=== PATIENT | male | born 1960 | race Caucasian/White ===

== ENCOUNTER → 2022-01-16 18:03 | Outpatient (CLI) | payer SELFPAY | PROVIDERS: Referring Provider Internal Medicine; Visit Provider Internal Medicine | DX: Z23 Encounter for immunization (principal) | CPT/HCPCS: 90471; 90686 ==

== ENCOUNTER → 2023-01-02 07:11 | Outpatient (CLI) | payer OTHER, SELFPAY ==
[2023-01-02 08:20] LABS: Add Manual Diff / Slide Review NO; Basophils Absolute Auto 0 /uL (0-100); Basophils Percent Auto 0.6 % (0-2); Eosinophils Absolute Auto 100 /uL (0-450); Eosinophils Percent Auto 1.8 % (2-4); Hematocrit 46.7 % (41-53); Hemoglobin 15.9 g/dL (13.5-17.5); Lymphocytes Absolute Auto 1100 /uL (1100-4500); Lymphocytes Percent Auto 14.8 % (25-40); Mean Corpuscular HGB Conc 34.1 % (30-36); Mean Corpuscular Hemoglobin 33.1 PG (26-34); Mean Corpuscular Volume 97.2 fL (80-100); Monocytes Absolute Auto 600 /uL (0-900); Neutrophils Absolute Auto 5700 /uL (1500-7000); Neutrophils Percent Auto 74.8 % (50-75); Platelet Count 187 X10^3/uL (150-400); White Blood Cell Count 7.7 X10^3/uL (4.5-11.0)
[2023-01-02 08:33] LABS: Alanine Aminotransferase 28 IU/L (<50); Albumin 4.4 g/dL (3.5-5.0); Albumin Globulin Ratio 1.5 (1.0-2.8); Alkaline Phosphatase 68 U/L (38-126); Aspartate Aminotransferase 30 IU/L (17-59); BUN Creatinine Ratio 18.4 (6-22); Bilirubin Total 0.9 mg/dL (0.2-1.3); Blood Urea Nitrogen 19 mg/dL (9-20); Calcium 9.7 mg/dL (8.4-10.2); Carbon Dioxide 27 mmol/L (22-32); Chloride 105 mmol/L (98-107); Cholesterol 243 mg/dL (140-199); Estimated Glomerular Filt Rate > 60 mL/min (>60); Glucose 100 mg/dL (80-110); HDL Cholesterol 61 mg/dL (40-60); HEMOLYSIS 40 (0-50); LDL Cholesterol Calculated 157 mg/dL (<100); Potassium 4.5 mmol/L (3.4-5.1); Sodium 138 mmol/L (137-145); Total Protein 7.4 g/dL (6.3-8.2); Triglycerides 123 mg/dL (35-150)
[2023-01-02 09:00] LABS: Prostate Specific Antigen 1.09 ng/mL (0.10-4.00)
[2023-01-02 09:05] LABS: TSH w/ Reflex to FT4 0.61 uIU/mL (0.47-4.68)
[2023-01-08 08:43] LABS: Percent Free Testosterone 2.23 % (1.50-4.20); Testosterone Free 5.66 ng/dL (5.00-21.00); Testosterone Total 253.9 ng/dL (264.0-916.0)
== END ==
PROVIDERS: PCP Family Medicine; Referring Provider Family Medicine; Visit Provider Family Medicine
DX: Z00.00 Encounter for general adult medical examination without abnormal findings (principal); N40.0 Benign prostatic hyperplasia without lower urinary tract symptoms; N52.9 Male erectile dysfunction, unspecified
CPT/HCPCS: 36415; 80053; 80061; 84153; 84402; 84403; 84443; 85025

== ENCOUNTER → 2023-02-19 11:01 | Outpatient (CLI) | payer OTHER, SELFPAY | PROVIDERS: PCP Family Medicine; Referring Provider Family Medicine; Visit Provider Family Medicine | DX: Z23 Encounter for immunization (principal) | CPT/HCPCS: 90471; 90686 ==

== ENCOUNTER 2023-04-02 13:55 | Emergency (ER) | payer OTHER, SELFPAY ==
[2023-04-02 14:17] VITALS: BP 145/91; PULSE 80; RESP 22; TEMP 36.4; O2SAT 98; BMI 28.7
--- NOTE | 2023-04-02 14:38 | DI.RAD.S_ITS ---
PROCEDURE: XR CHEST 1V INDICATIONS: chest pain TECHNIQUE: One view of the chest was acquired. COMPARISON: None. FINDINGS: Surgical changes and devices: None. Lungs and pleura: Lungs are clear. No pleural effusions or pneumothorax. Mediastinum: Mediastinal contours appear normal. Heart size is normal. Bones and chest wall: No suspicious bony lesions. Overlying soft tissues appear unremarkable. IMPRESSION: No acute cardiopulmonary abnormality is seen. Dictated by: Anson Wheeler M.D. on 04/02/2023 at 15:05 Approved by: Anson Wheeler M.D. on 04/02/2023 at 15:05
[2023-04-02 14:49] LABS: Add Manual Diff / Slide Review NO; Basophils Absolute Auto 0 /uL (0-100); Basophils Percent Auto 0.4 % (0-2); Eosinophils Absolute Auto 100 /uL (0-450); Eosinophils Percent Auto 1.1 % (2-4); Hematocrit 50.6 % (41-53); Hemoglobin 17.3 g/dL (13.5-17.5); Lymphocytes Absolute Auto 900 /uL (1100-4500); Lymphocytes Percent Auto 10.9 % (25-40); Mean Corpuscular HGB Conc 34.1 % (30-36); Mean Corpuscular Hemoglobin 33.5 PG (26-34); Mean Corpuscular Volume 98.3 fL (80-100); Monocytes Absolute Auto 700 /uL (0-900); Monocytes Percent Auto 7.8 % (3-14); Neutrophils Absolute Auto 6900 /uL (1500-7000); Neutrophils Percent Auto 79.8 % (50-75); Platelet Count 182 X10^3/uL (150-400); Red Blood Cell Count 5.15 X10^6/uL (4.5-5.9); Red Cell Distribution Width 12.7 % (11.6-14.8); White Blood Cell Count 8.7 X10^3/uL (4.5-11.0)
[2023-04-02 15:05] LABS: INR 1.1 (0.9-1.3); Prothrombin Time 12.6 SECONDS (9.4-12.5)
[2023-04-02 15:06] LABS: Alanine Aminotransferase 18 IU/L (<50); Albumin 4.3 g/dL (3.5-5.0); Albumin Globulin Ratio 1.3 (1.0-2.8); Alkaline Phosphatase 59 U/L (38-126); Aspartate Aminotransferase 26 IU/L (17-59); BUN Creatinine Ratio 18.1 (6-22); Blood Urea Nitrogen 17 mg/dL (9-20); Calcium 9.9 mg/dL (8.4-10.2); Carbon Dioxide 23 mmol/L (22-32); Chloride 107 mmol/L (98-107); Creatine Kinase 100 U/L (55-170); Estimated Glomerular Filt Rate > 60 mL/min (>60); Globulin 3.4 g/dL (1.7-4.1); Glucose 120 mg/dL (80-110); HEMOLYSIS 28 (0-50); Lipase 93 U/L (23-300); Magnesium 2.1 mg/dL (1.6-2.3); Potassium 4.1 mmol/L (3.4-5.1); Sodium 137 mmol/L (137-145); Total Protein 7.7 g/dL (6.3-8.2)
[2023-04-02 15:11] LABS: PTT Partial Thromboplastin Tim 33 SECONDS (25.1-36.5)
[2023-04-02 15:16] LABS: NT-proBNP (BNP-Adult 18+) 132 pg/mL (<125); Troponin I < 0.012 ng/mL (0.01-0.034)
--- NOTE | 2023-04-02 17:00 | PC.NURSE ---
Patient called back to ED to request removal of IV and to go home. Patient understands how to get his lab information to follow up with PCP.
== END 2023-04-02 17:01 | disposition left against medical advice (07) ==
PROVIDERS: Emergency Provider Emergency Medicine; PCP Family Medicine
DX: R07.9 Chest pain, unspecified (principal); H93.13 Tinnitus, bilateral
CPT/HCPCS: 71045; 80053; 82550; 83690; 83735; 83880; 84484; 85025; 85610; 85730; 93005; 99281

== ENCOUNTER → 2023-07-17 16:38 | Outpatient (CLI) | payer OTHER, SELFPAY ==
--- NOTE | 2023-07-17 16:39 | DI.RAD.S_ITS ---
PROCEDURE: XR CERVICAL SPINE 2V OR 3V INDICATIONS: Progressive neck pain with left upper extremity radiculopath TECHNIQUE: 3 view(s) of the cervical spine were acquired. COMPARISON: None. FINDINGS: Bones: [id number] degenerative changes. Vertebral body heights are well maintained. No traumatic subluxation. Soft tissues: No pathologic prevertebral soft tissue swelling. IMPRESSION: [id number] degenerative changes. No acute radiographic abnormality. If there is high concern for further derangement, consider MRI evaluation. Dictated by: Teo Larson M.D. on 07/18/2023 at 12:01 Approved by: Teo Larson M.D. on 07/18/2023 at 12:02
== END ==
PROVIDERS: PCP Family Medicine; Referring Provider Family Medicine; Visit Provider Family Medicine
DX: M43.02 Spondylolysis, cervical region (principal); M47.812 Spondylosis without myelopathy or radiculopathy, cervical region
CPT/HCPCS: 72040

== ENCOUNTER 2023-09-07 19:35 | Emergency (ER) | payer OTHER, SELFPAY ==
[2023-09-07] VITALS (12 sets, daily range): BP systolic 115–172; BP diastolic 55–93; PULSE 69–85; RESP 15; TEMP 36.6; O2SAT 92–98; BMI 29.3
[2023-09-07] MEDS: ONDANSETRON 4 MG/2 ML INJ IV (20:02)
[2023-09-07] MEDS: KETOROLAC 30 MG/ML VIAL 15 MG IV (20:03)
[2023-09-07 20:04] LABS: Add Manual Diff / Slide Review NO; Basophils Absolute Auto 100 /uL (0-100); Basophils Percent Auto 0.5 % (0-2); Eosinophils Absolute Auto 200 /uL (0-450); Eosinophils Percent Auto 1.6 % (2-4); Hematocrit 47.4 % (41-53); Lymphocytes Absolute Auto 2000 /uL (1100-4500); Lymphocytes Percent Auto 17.5 % (25-40); Mean Corpuscular HGB Conc 33.9 % (30-36); Mean Corpuscular Hemoglobin 33.3 PG (26-34); Mean Corpuscular Volume 98.3 fL (80-100); Monocytes Absolute Auto 1300 /uL (0-900); Monocytes Percent Auto 11.4 % (3-14); Neutrophils Absolute Auto 7800 /uL (1500-7000); Platelet Count 201 X10^3/uL (150-400); Red Blood Cell Count 4.82 X10^6/uL (4.5-5.9); Red Cell Distribution Width 12.7 % (11.6-14.8); White Blood Cell Count 11.3 X10^3/uL (4.5-11.0)
[2023-09-07 20:08] LABS: Alanine Aminotransferase 34 IU/L (<50); Albumin 4.5 g/dL (3.5-5.0); Albumin Globulin Ratio 1.4 (1.0-2.8); Alkaline Phosphatase 82 U/L (38-126); Aspartate Aminotransferase 38 IU/L (17-59); BUN Creatinine Ratio 15.6 (6-22); Bilirubin Total 0.6 mg/dL (0.2-1.3); Blood Urea Nitrogen 21 mg/dL (9-20); Calcium 9.3 mg/dL (8.4-10.2); Carbon Dioxide 22 mmol/L (22-32); Chloride 110 mmol/L (98-107); Estimated Glomerular Filt Rate 59 mL/min (>60); Globulin 3.2 g/dL (1.7-4.1); Glucose 102 mg/dL (80-110); HEMOLYSIS 21 (0-50); Lipase 186 U/L (23-300); Sodium 140 mmol/L (137-145); Total Protein 7.7 g/dL (6.3-8.2)
--- NOTE | 2023-09-07 21:46 | DI.CT.S_ITS ---
PROCEDURE: CT ABDOMEN PELVIS WO CON INDICATIONS: abd pain TECHNIQUE: Axial sections were acquired from the lung bases to the pubic symphysis. Coronal and sagittal reformats were performed. For radiation dose reduction, the following was used: automated exposure control, adjustment of mA and/or kV according to patient size. COMPARISON: None. FINDINGS: Image quality: Diagnostic. Lower Chest: Clear lung bases. Tiny hiatal hernia. URINARY: Right Kidney: Two punctate, nonobstructing, lower pole right intrarenal calculi. No hydronephrosis. Right Ureter: No hydroureter, ureteral calculus, or periureteric inflammation. Left Kidney: Punctate, nonobstructing lower pole intrarenal calculi. Mild hydronephrosis. Moderate perinephric inflammation. Left Ureter: Mild hydroureter and moderate periureteric inflammation. 4 mm calcification in the left distal ureter. Bladder: Decompressed. No stones. ABDOMEN: Liver: No contour-deforming solid mass. Gallbladder: Very small, nonobstructing calculus in the gallbladder neck. No wall thickening. Biliary ducts: No biliary dilation. Pancreas: No ductal dilation. Spleen: Size is within normal limits. Adrenal Glands: No adrenal nodules. Stomach and Bowel: Ingested material throughout the stomach. Normal small bowel. Moderate diverticulosis in the sigmoid colon. The appendix is either very short or absent. Peritoneum: No abnormal intraperitoneal fluid. No free air. Ventral Wall: No hernia. Abdominal Nodes: No enlarged retroperitoneal or mesenteric lymph nodes. Vessels: Aorta and inferior vena cava are normal in size. PELVIS: Pelvic Organs: Mild prostatomegaly. Pelvic Nodes: Unremarkable. Miscellaneous: No inguinal hernias are seen. Bones: Unremarkable. IMPRESSION: 4 mm partially obstructing left distal ureteral calculus causing mild left hydroureteronephrosis. A few punctate bilateral lower pole nonobstructing intrarenal calculi. Cholelithiasis. Dictated by: Afshan Wolff M.D. on 09/07/2023 at 22:55 Approved by: Afshan Wolff M.D. on 09/07/2023 at 22:59
[2023-09-07] MEDS: HYDROMORPHONE 0.5 MG INJ IV ×2 (21:55→23:45)
[2023-09-07 21:57] LABS: Urine Volume 10mL (spun)
[2023-09-07 21:58] LABS: Bacteria Urine Few (2-10); Mucus Urine 1+ (Negative); RBC Urine 5-10/HPF (0-5/HPF); Squamous Epithelial Cell Urine 0-1 /HPF (0-5/HPF); WBC Urine 0-1/HPF (0-5/HPF)
--- NOTE | 2023-09-07 22:49 | ED.ABDPAIN ---
HPI - Abdominal Pain General Chief Complaint: Urogenital-Male Stated Complaint: kidney stone Time Seen by Provider: 09/07/23 21:46 Source: patient Mode of arrival: Ambulatory History of Present Illness HPI narrative: 62-year-old male with history of kidney stones, had diagnosis of left-sided kidney stone 1-1/2 months ago he thinks that was about 5 mm in diameter, has not seen Urology, but did feel better in follow up, had not been straining his urine for stone or sediment. About 1 week ago he felt like he had blood in his urine but no flank pain or abdominal pain, that seemed to resolve. Today proximally 5:00 p.m. he had acute onset atraumatic left flank pain, some nausea without emesis. No black or red or loose stools. He has had similar symptoms with diverticulitis, was concerned about diverticulitis, as he felt that he had passed his recent stone. No cough or fever or shortness of breath. Related Data Previous Rx's Medication Instructions Recorded tadalafil 5 mg tablet 5 mg PO DAILY PRN sexual activity 12/29/22 #90 tabs tamsulosin 0.4 mg capsule 0.4 mg PO BEDTIME #90 caps 12/29/22 needle (disp) 18 G 18 gauge x 1 #100 ea 01/11/2303/06 (BD Regular Bevel Jefferson) syringe with needle (Monoject #300 ea 01/11/23 Safety Syringes) testosterone cypionate 200 mg/mL 100 mg (0.5 mL) IM QWEEK #10 mL 01/11/23 intramuscular oil (Depo-Testosterone) trazodone 50 mg tablet 50 mg PO BEDTIME PRN insomnia #30 04/05/23 tabs gabapentin 300 mg capsule 300 mg PO .COMPLEX #90 caps 08/06/23 lidocaine 5 % topical patch 1 patch topical DAILY #30 ea 08/06/23 cefdinir 300 mg capsule 300 mg PO BID 10 days #20 caps 09/08/23 cefdinir 300 mg capsule 300 mg PO BID 10 days #20 caps 09/08/23 naproxen 500 mg tablet 500 mg PO BID 7 days #14 tabs 09/08/23 naproxen 500 mg tablet 500 mg PO BID 7 days #14 tabs 09/08/23 oxycodone-acetaminophen 5 mg-325 1 tab PO Q6H PRN pain #14 tabs 09/08/23 mg tablet oxycodone-acetaminophen 5 mg-325 1 tab PO Q6H PRN pain #20 tabs 09/08/23 mg tablet tamsulosin 0.4 mg capsule 0.8 mg (2 x 0.4 mg) PO DAILY 7 09/08/23 days #14 caps tamsulosin 0.4 mg capsule 0.8 mg (2 x 0.4 mg) PO DAILY 7 09/08/23 days #14 caps Allergies Allergy/AdvReac Type Severity Reaction Status Date / Time No Known Drug Allergies Allergy Verified 09/07/23 19:45 Review of Systems Review of Systems Narrative: see HPI Patient History Medical History (Updated 09/08/23 @ 00:36 by Tres Marques MD) Left arm pain Chronic neck pain Cervical radiculopathy Cervical spondylolysis Hypotestosteronism Hyperlipidemia Hearing loss Sleep apnea (~2009) Shoulder pain (~2004) Chronic back pain Carpal tunnel syndrome (~2004) Erectile dysfunction Preventative health care BPH (benign prostatic hyperplasia) Surgical History Anesthesia History of surgery on arm History of hernia repair History of back surgery History of hand surgery Social History Smoking Status: Former smoker Smoking Status: Former smoker alcohol intake frequency: holidays/special occasions only Substance Use Type: marijuana Exam Narrative Exam Narrative: GENERAL: Well-developed patient, in mild distress. HEAD: Atraumatic. Normocephalic. EYES: Pupils equal round and reactive. Extraocular motions intact. No scleral icterus. No injection or drainage. ENT: Nose without bleeding, purulent drainage. Throat without erythema, tonsillar hypertrophy or exudate. Airway patent. NECK: Trachea midline. Non tender CARDIOVASCULAR: Regular rate and rhythm without murmurs, gallops, or rubs. RESPIRATORY: Clear to auscultation. Breath sounds equal bilaterally. No wheezes, rales, or rhonchi. GASTROINTESTINAL: Abdomen soft, mild tenderness LLQ abdomen, no guarding or rebound, nondistended. EXTREMITIES: No edema or joint tenderness. BACK: Nontender without deformity or crepitance or vesicles/rash. No flank tenderness. NEURO: AOx3. SKIN: No rash or erythema of visible areas Initial Vital Signs Initial Vital Signs: Vital Signs Temperature 97.8 F 09/07/23 19:37 Pulse Rate 80 07/05/24 19:37 Respiratory Rate 15 09/07/23 19:37 Blood Pressure 172/93 H 09/07/23 19:37 Pulse Oximetry 98 09/07/23 19:37 Oxygen Delivery Method Room Air 09/07/23 19:37 Course Orders Ordered: Discontinued Medications Hydromorphone HCl (Hydromorphone 0.5 Mg Inj) 0.5 mg IV NOW ONE Stop: 09/07/23 21:50 Last Admin: 09/07/23 21:55 Dose: 0.5 mg Documented By: CARIDAD Hydromorphone HCl (Hydromorphone 0.5 Mg Inj) 0.5 mg IV NOW ONE Stop: 09/07/23 23:19 Last Admin: 09/07/23 23:45 Dose: 0.5 mg Documented By: GLENROY Ceftriaxone Sodium 1,000 mg/ (Sodium Chloride) 100 mls @ 200 mls/hr IV NOW ONE Stop: 09/08/23 00:36 Last Infusion: 09/08/23 01:19 Dose: Infused Documented By: Admin: 09/08/23 00:44 Dose: 200 mls/hr Documented By: ABE Ketorolac Tromethamine (Ketorolac 30 Mg/Ml Vial) 15 mg IV NOW ONE Stop: 09/07/23 19:57 Last Admin: 09/07/23 20:03 Dose: 15 mg Documented By: CARIDAD Ondansetron HCl (Ondansetron 4 Mg/2 Ml Inj) 4 mg IV NOW PRN PRN Reason: Nausea And Vomiting Last Admin: 09/07/23 20:02 Dose: 4 mg Documented By: CARIADD Ondansetron HCl (Ondansetron 4 Mg Odt) 4 mg PO NOW PRN PRN Reason: Nausea And Vomiting Ondansetron HCl (Ondansetron 4 Mg/2 Ml Inj) 4 mg IV NOW ONE Stop: 09/07/23 22:02 Ondansetron HCl (Ondansetron 4 Mg Odt Prepack) 1 bottle MISC DIRECTED ONE Stop: 09/08/23 01:41 Last Admin: 09/08/23 01:44 Dose: 1 bottle Documented By: LANE Oxycodone/Acetaminophen (Oxycodone/Apap 5/325 Prepack) 1 bottle MISC DIRECTED ONE Stop: 09/08/23 01:41 Last Admin: 09/08/23 01:44 Dose: 1 bottle Documented By: HNG Vital Signs Vital signs: Vital Signs - 8 hr 09/07/23 19:37 09/07/23 19:39 09/07/23 19:39 Temperature 97.8 F Pulse Rate 80 80 Respiratory Rate 15 Blood Pressure 172/93 H 172/93 H Pulse Oximetry 98 97 Oxygen Delivery Method Room Air 09/07/23 20:06 09/07/23 20:30 09/07/23 20:31 Temperature Pulse Rate 69 74 Respiratory Rate Blood Pressure 118/55 L Pulse Oximetry 98 92 Oxygen Delivery Method 09/07/23 20:31 09/07/23 21:00 09/07/23 21:00 Temperature Pulse Rate 74 81 Respiratory Rate Blood Pressure 115/58 L Pulse Oximetry 92 Oxygen Delivery Method 09/07/23 21:29 09/07/23 21:30 09/07/23 21:30 Temperature Pulse Rate 82 81 Respiratory Rate Blood Pressure 122/63 Pulse Oximetry 97 96 Oxygen Delivery Method 09/07/23 22:00 09/07/23 22:30 09/07/23 23:00 Temperature Pulse Rate 78 76 75 Respiratory Rate Blood Pressure Pulse Oximetry 94 94 93 Oxygen Delivery Method 09/07/23 23:30 09/08/23 00:00 09/08/23 00:30 Temperature Pulse Rate 85 73 74 Respiratory Rate Blood Pressure Pulse Oximetry 95 94 95 Oxygen Delivery Method 09/08/23 00:47 09/08/23 00:47 09/08/23 01:00 Temperature Pulse Rate 82 Respiratory Rate Blood Pressure 118/71 119/72 Pulse Oximetry 95 Oxygen Delivery Method 09/08/23 01:00 Temperature Pulse Rate 73 Respiratory Rate Blood Pressure Pulse Oximetry 95 Oxygen Delivery Method MDM - Abdominal Pain Differential Diagnosis Differential diagnosis: Likely abdominal pain, acute appendicitis, calculus of kidney, small bowel obstruction and other Lab Data Attestation: I reviewed the patient's lab results. 09/07/23 19:45 09/07/23 19:45 Labs: Lab Results 09/07/23 09/07/23 Range/Units 19:45 21:30 WBC 11.3 H (4.5-11.0) X10^3/uL RBC 4.82 (4.5-5.9) X10^6/uL Hgb 16.0 (13.5-17.5) g/dL Hct 47.4 (41-53) % MCV 98.3 (80-100) fL MCH 33.3 (26-34) PG MCHC 33.9 (30-36) % RDW 12.7 (11.6-14.8) % Plt Count 201 (150-400) X10^3/uL Neut % (Auto) 69.0 (50-75) % Lymph % (Auto) 17.5 L (25-40) % [place] % (Auto) 11.4 (3-14) % Eos % (Auto) 1.6 L (2-4) % Baso % (Auto) 0.5 (0-2) % Neut # (Auto) 7800 H (9684-0094) /uL Lymph # (Auto) 2000 (5517-6289) /uL [place] # (Auto) 1300 H (0-900) /uL Eos # (Auto) 200 (0-450) /uL Baso # (Auto) 100 (0-100) /uL Sodium 140 (137-145) mmol/L Potassium 4.0 (3.4-5.1) mmol/L Chloride 110 H (98-107) mmol/L Carbon Dioxide 22 (22-32) mmol/L BUN 21 H (9-20) mg/dL Creatinine 1.35 H (0.66-1.25) mg/dL Estimated GFR 59 L (>60) mL/min BUN/Creatinine Ratio 15.6 (6-22) Glucose 102 (80-110) mg/dL Calcium 9.3 (8.4-10.2) mg/dL Total Bilirubin 0.6 (0.2-1.3) mg/dL AST 38 (17-59) IU/L ALT 34 (<50) IU/L Alkaline Phosphatase 82 (38-126) U/L Total Protein 7.7 (6.3-8.2) g/dL Albumin 4.5 (3.5-5.0) g/dL Globulin 3.2 (1.7-4.1) g/dL Albumin/Globulin Ratio 1.4 (1.0-2.8) Lipase 186 (23-300) U/L Urine RBC 5-10/hpf H (0-5/HPF) Urine WBC 0-1/hpf (0-5/HPF) Ur Squamous Epith Cells 0-1 /hpf (0-5/HPF) Urine Bacteria Few (2-10) H (None) Urine Mucus 1+ H (Negative) Vol Urine Centrifuged 10ml (spun) Point of care testing: Urine Dip Bedside Urine Glucose Negative Bedside Urine Bilirubin - Negative Bedside Urine Ketone ++ 40 Urine Specific [place] 1.015 Bedside Urine Occult Blood +++ Bedside Urine pH 7.0 Bedside Urine Protein +/- 15 Bedside Urine Urobilinogen - Negative Bedside Urine Nitrite - Negative Bedside Urine Leukocytes - Negative Esterase Imaging Data CT scan - abdomen/pelvis: Radiologist's Impression: [address] [address] [address] Scan Report Signed Patient: Jorge Ochoa MR#: [id number] : 1960 Acct:[id number] Age/Sex: 62 / M Date of Service: 09/07/23 Loc: ED Accession Number: [id number] Procedure: CT abdomen pelvis wo con Ordering Provider: Tres Marques MD PROCEDURE: CT ABDOMEN PELVIS WO CON INDICATIONS: abd pain TECHNIQUE: Axial sections were acquired from the lung bases to the pubic symphysis. Coronal and sagittal reformats were performed. For radiation dose reduction, the following was used: automated exposure control, adjustment of mA and/or kV according to patient size. COMPARISON: None. FINDINGS: Image quality: Diagnostic. Lower Chest: Clear lung bases. Tiny hiatal hernia. URINARY: Right Kidney: Two punctate, nonobstructing, lower pole right intrarenal calculi. No hydronephrosis. Right Ureter: No hydroureter, ureteral calculus, or periureteric inflammation. Left Kidney: Punctate, nonobstructing lower pole intrarenal calculi. Mild hydronephrosis. Moderate perinephric inflammation. Left Ureter: Mild hydroureter and moderate periureteric inflammation. 4 mm calcification in the left distal ureter. Bladder: Decompressed. No stones. ABDOMEN: Liver: No contour-deforming solid mass. Gallbladder: Very small, nonobstructing calculus in the gallbladder neck. No wall thickening. Biliary ducts: No biliary dilation. Pancreas: No ductal dilation. Spleen: Size is within normal limits. Adrenal Glands: No adrenal nodules. Stomach and Bowel: Ingested material throughout the stomach. Normal small bowel. Moderate diverticulosis in the sigmoid colon. The appendix is either very short or absent. Peritoneum: No abnormal intraperitoneal fluid. No free air. Ventral Wall: No hernia. Abdominal Nodes: No enlarged retroperitoneal or mesenteric lymph nodes. Vessels: Aorta and inferior vena cava are normal in size. PELVIS: Pelvic Organs: Mild prostatomegaly. Pelvic Nodes: Unremarkable. Miscellaneous: No inguinal hernias are seen. Bones: Unremarkable. IMPRESSION: 4 mm partially obstructing left distal ureteral calculus causing mild left hydroureteronephrosis. A few punctate bilateral lower pole nonobstructing intrarenal calculi. Cholelithiasis. Dictated by: Afshan Wolff M.D. on 09/07/2023 at 22:55 Approved by: Afshan Wolff M.D. on 09/07/2023 at 22:59 MDM Narrative Medical decision making narrative: 62-year-old male with left-sided flank pain, history of kidney stones, somewhat similar, no tenderness on exam, discussed options, history of diverticulitis, mild left lower quadrant tenderness on exam, prefers imaging. CT abdomen and pelvis imaging ordered. IV Dilaudid, some decreased pain. CT scan shows left ureteral stone 4 mm with ipsilateral hydronephrosis. Incidental cholelithiasis, patient informed. UA pending UA possible infection, no fever, urine culture requested, IV ceftriaxone, sent Rx for Cefdinir. Also sent Rx for Percocet, Rx for tamsulosin. Urine strainer for discharge. Advised close follow-up early this week with urology, check symptoms and culture results, return if fever as might need urology to place ureeral stent, no fever at this time. Contact info given for local urologist Dr Le for follow-up. Return precautions discussed. Home improved, stable Critical Care Time Critical Care Time Critical Care Time: Yes Total Critical Care Time: 31 Attestation: The high probability of a clinically significant, sudden or life threatening deterioration of the [genitourinary, gastrointestinal, abdominopelvic] system(s) required my full and direct attention, intervention and personal management. The aggregate critical care time was [31] minutes. This time is in addition to time spent performing reported procedures but includes the following: [x] Data Review and interpretation [x] Patient assessment and monitoring of vital signs [x] Documentation [x] Medication orders and management Discharge Plan Departure Patient Disposition: Home Clinical Impression: Acute left flank pain, Left ureteral stone, Urinary tract infection Instructions: DI for Kidney Stones, DI for Urinary Tract Infection (UTI) Activity Restrictions/Additional Instructions: Left flank pain, CT scanning showed 4 mm left-sided ureteral stone, urinalysis shows possible infection, urine culture requested, IV antibiotics started. No fever. If there were definite infection with fever then sometimes emergent ureteral surgical stenting is needed. No fever. Trial of antibiotics for now in case of infection, although it is not clear if there is really truly an infection. Continue antibiotic orally until recheck on Sunday with your regular provider and/or Urology. Contact information given for Dr. Le of Urology. Consider taking tamsulosin to help expulsion of the stone, prescription sent to your pharmacy. Percocet pain medication sent to your pharmacy. Consider taking anti-inflammatory pain medications as well, prescription sent to your pharmacy. Prescriptions: New cefdinir 300 mg capsule 300 mg PO BID 10 Days Qty: 20 0RF tamsulosin 0.4 mg capsule 0.8 mg PO DAILY 7 Days Qty: 14 0RF naproxen 500 mg tablet 500 mg PO BID 7 Days Qty: 14 0RF oxycodone-acetaminophen 5-325 mg tablet 1 tab PO Q6H PRN (Reason: pain) Qty: 14 0RF oxycodone-acetaminophen 5-325 mg tablet 1 tab PO Q6H PRN (Reason: pain) Qty: 20 0RF tamsulosin 0.4 mg capsule 0.8 mg PO DAILY 7 Days Qty: 14 0RF cefdinir 300 mg capsule 300 mg PO BID 10 Days Qty: 20 0RF naproxen 500 mg tablet 500 mg PO BID 7 Days Qty: 14 0RF No Action tadalafil 5 mg tablet 5 mg PO DAILY PRN (Reason: sexual activity) Qty: 90 3RF Rx Instructions: administer approximately 30min before sexual activity; do not use more than 1 dose per 24hrs tamsulosin 0.4 mg capsule 0.4 mg PO BEDTIME Qty: 90 3RF Rx Instructions: take at bedtime trazodone 50 mg tablet 50 mg PO BEDTIME PRN (Reason: insomnia) Qty: 30 1RF (DME) BD Regular Bevel Jefferson 18 gauge x 1 1/2 needle See Rx Instructions .Route Qty: 100 0RF Rx Instructions: Use to inject Testosterone once a week (DME) Monoject Safety Syringes Syringe See Rx Instructions .Route Qty: 300 0RF Rx Instructions: Use to inject Testosterone weekly. 18 G x 1 1/2 testosterone cypionate [Depo-Testosterone] 200 mg/mL oil 100 mg IM QWEEK Qty: 10 1RF lidocaine 5 % adhesive patch,medicated 1 patch topical DAILY Qty: 30 1RF Rx Instructions: leave on most painful area for 12 hrs gabapentin 300 mg capsule 300 mg PO .COMPLEX Qty: 90 2RF Rx Instructions: 1 PO QHS x3 days if tolerated, 1 PO BID x3 days if tolerated, 1 PO TID Referrals: Marlo Simmons DO [Primary Care Provider] - Emeterio Le MD [Physician] - Stand Alone Forms: Patient Portal/API
[2023-09-08] VITALS: PULSE 73; O2SAT 94
[2023-09-08 00:30] VITALS: PULSE 74; O2SAT 95
[2023-09-08] MEDS: cefTRIAXone 1,000 MG in SODIUM CHLORIDE 0.9% 100 ML 200 MG IV (00:44)
[2023-09-08 00:47] VITALS: BP 118/71; PULSE 82; O2SAT 95
[2023-09-08 01:00] VITALS: BP 119/72; PULSE 73; O2SAT 95
[2023-09-08] MEDS: ONDANSETRON 4 MG ODT PREPACK 1 BOTTLE MISC (01:44)
[2023-09-08] MEDS: OXYCODONE/APAP 5/325 PREPACK 1 BOTTLE MISC (01:44)
== END 2023-09-08 01:46 | disposition home or self-care (01) ==
PROVIDERS: Emergency Provider Emergency Medicine; PCP Family Medicine
DX: N20.1 Calculus of ureter (principal); N39.0 Urinary tract infection, site not specified; R10.9 Unspecified abdominal pain; R11.2 Nausea with vomiting, unspecified; Z87.442 Personal history of urinary calculi
CPT/HCPCS: 36415; 74176; 80053; 81003; 81015; 83690; 85025; 87086; 96365; 96375; 96376; 99284; J0696; J1170; J1885; J2405

== ENCOUNTER 2023-09-13 07:34 | Observation (INO) | payer OTHER, SELFPAY ==
[2023-09-13] VITALS (11 sets, daily range): BP systolic 103–160; BP diastolic 63–84; PULSE 60–83; RESP 17–19; TEMP 36.6–36.8; O2SAT 94–98; BMI 29.1; BMI 29.3
--- NOTE | 2023-09-13 07:43 | ED_ITS ---
HPI - Abdominal Pain General Chief Complaint: Abdominal Pain Stated Complaint: per pt diverticulitis & kidney stone Time Seen by Provider: 09/13/23 07:43 History of Present Illness HPI narrative: Patient is 62-year-old male history of BPH known kidney stone was seen evaluated here on September 06 found to have a 4 mm partially obstructing left distal calculous, presenting today with now right-sided pain. He reports that he has been drinking water and not really eating trying to have an ensure but continues to have pain. He feels like he is peeing but only a little bit a time he urinated blood this morning. He was sweating all night last night. But not sure that he had fever. Right-sided pain is new. He has been taking Percocet, which is not helping for pain any longer. Related Data Home Medications Medication Instructions Recorded Confirmed ibuprofen 600 mg tablet 600 mg PO 3XD 09/13/23 09/13/23 Previous Rx's Medication Instructions Recorded tadalafil 5 mg tablet 5 mg PO DAILY PRN sexual activity 12/29/22 #90 tabs tamsulosin 0.4 mg capsule 0.4 mg PO BEDTIME #90 caps 12/29/22 gabapentin 300 mg capsule 300 mg PO .COMPLEX #90 caps 08/06/23 lidocaine 5 % topical patch 1 patch topical DAILY #30 ea 08/06/23 cefdinir 300 mg capsule 300 mg PO BID 10 days #20 caps 09/08/23 naproxen 500 mg tablet 500 mg PO BID 7 days #14 tabs 09/08/23 oxycodone-acetaminophen 5 mg-325 1 tab PO Q6H PRN pain #14 tabs 09/08/23 mg tablet Allergies Allergy/AdvReac Type Severity Reaction Status Date / Time No Known Drug Allergies Allergy Verified 09/07/23 19:45 Patient History Medical History Left arm pain Chronic neck pain Cervical radiculopathy Cervical spondylolysis Hypotestosteronism Hyperlipidemia Hearing loss Sleep apnea (~2009) Shoulder pain (~2004) Chronic back pain Carpal tunnel syndrome (~2004) Erectile dysfunction Preventative health care BPH (benign prostatic hyperplasia) Surgical History Anesthesia History of surgery on arm History of hernia repair History of back surgery History of hand surgery Social History household members: spouse Smoking Status: Former smoker alcohol intake: current Smoking Status: Former smoker alcohol intake frequency: holidays/special occasions only Substance Use Type: marijuana Exam Initial Vital Signs Initial Vital Signs: Vital Signs Pulse Rate 82 09/13/23 07:39 Blood Pressure 160/81 H 09/13/23 07:39 Pulse Oximetry 98 09/13/23 07:39 GENERAL: Alert 62-year-old male appears in pain and in no acute distress. HEENT: Head atraumatic,EOMI, pupils reactive, face symmetric, moist mucous membranes CARDIOVASCULAR: Regular rate and rhythm without murmurs, rubs or gallops. RESPIRATORY: Breath sounds equal bilaterally, no wheezes rales or rhonchi. ABDOMEN: Soft, tender all across lower abdomen both right and left sides significant distention : Mild left CVA tenderness EXTREMITIES: Normal range of motion, no clubbing or edema. Neurovascularly intact NEUROLOGICAL: Alert and oriented x4 no focal deficits SKIN: Warm, dry, no laceration, no petechiae, no rashes or lesions. Course Orders Ordered: ED Orders 09/13/23 07:44 Complete Blood Count AUTO DIFF Stat Comprehensive Metabolic Panel Stat Lactate (Lactic Acid) Stat Lipase Stat 09/13/23 07:46 CT abdomen pelvis w con Stat 09/13/23 08:10 Ictotest Urine Stat Urinalysis and Microscopic Stat Acetaminophen (Acetaminophen 325 Mg Tablet) 650 mg PO Q6H PRN PRN Reason: Fever/Mild Pain (1-3) Cefdinir (Cefdinir 300 Mg Capsule) 300 mg PO BID RASHMI Celecoxib (Celecoxib 200 Mg Capsule) 200 mg PO BID COUNT INCLUDES THE [facility] Last Admin: 09/13/23 11:59 Dose: 200 mg Documented By: Gabapentin (Gabapentin 300 Mg Capsule) 300 mg PO .COMPLEX RASHMI Piperacillin Sod/Tazobactam (Sod 3.375 gm/ Sodium Chloride) 100 mls @ 200 mls/hr IV Q8H RASHMI Last Admin: 09/13/23 14:45 Dose: 200 mls/hr Documented By: Lidocaine (Lidocaine 5% Patch) 1 each TOP DAILY COUNT INCLUDES THE [facility] Oxycodone HCl (Oxycodone Ir 5 Mg Tablet) 5 mg PO Q3HR PRN PRN Reason: Pain, Moderate (4-6) Last Admin: 09/13/23 14:58 Dose: 5 mg Documented By: Admin: 09/13/23 10:13 Dose: 5 mg Documented By: MS Oxycodone HCl (Oxycodone Ir 5 Mg Tablet) 10 mg PO Q3HR PRN PRN Reason: Pain, Severe (7-10) Sodium Chloride (Sodium Chloride 0.9% Flush) 10 ml IV BID COUNT INCLUDES THE [facility] Tamsulosin HCl (Tamsulosin 0.4 Mg Capsule) 0.4 mg PO BEDTIME RASHMI Discontinued Medications Piperacillin Sod/Tazobactam (Sod 4.5 gm/ Sodium Chloride) 100 mls @ 200 mls/hr IV NOW ONE Stop: 09/13/23 08:32 Last Infusion: 09/13/23 10:37 Dose: Infused Documented By: Admin: 09/13/23 10:07 Dose: 200 mls/hr Documented By: Metronidazole (Flagyl) 500 mg in 100 mls @ 100 mls/hr IV NOW ONE Stop: 09/13/23 09:30 Last Infusion: 09/13/23 09:47 Dose: Infused Documented By: Admin: 09/13/23 08:48 Dose: 100 mls/hr Documented By: RB Piperacillin Sod/Tazobactam (Sod 4.5 gm/ Sodium Chloride) 100 mls @ 25 mls/hr IV Q8H COUNT INCLUDES THE [facility] Last Admin: 09/13/23 12:24 Dose: Not Given Documented By: MS Ketorolac Tromethamine (Ketorolac 30 Mg/Ml Vial) 30 mg IV NOW ONE Stop: 09/13/23 07:48 Last Admin: 09/13/23 07:54 Dose: 30 mg Documented By: VIELKA Non-Formulary Medication (Tadalafil) 5 mg PO DAILY PRN PRN Reason: sexual activity Oxycodone HCl (Oxycodone 5 Mg/5 Ml Oral Solution) 5 mg PO Q3HR PRN PRN Reason: Pain, Moderate (4-6) Vital Signs Vital signs: Vital Signs - 8 hr 09/13/23 07:39 09/13/23 07:39 09/13/23 07:40 Temperature 97.9 F Pulse Rate 82 83 Respiratory Rate 18 Blood Pressure 160/81 H 160/81 H Pulse Oximetry 98 98 Oxygen Delivery Method Room Air 09/13/23 08:14 09/13/23 08:15 09/13/23 08:15 Temperature Pulse Rate 73 74 Respiratory Rate Blood Pressure 123/75 Pulse Oximetry 96 94 Oxygen Delivery Method 09/13/23 08:30 09/13/23 08:30 09/13/23 09:00 Temperature Pulse Rate 71 72 Respiratory Rate Blood Pressure 119/64 Pulse Oximetry 95 96 Oxygen Delivery Method 09/13/23 09:00 Temperature Pulse Rate Respiratory Rate Blood Pressure 130/73 Pulse Oximetry Oxygen Delivery Method MDM - Abdominal Pain Lab Data 09/13/23 07:44 09/13/23 07:44 Labs: Lab Results 09/13/23 09/13/23 Range/Units 07:44 08:10 WBC 13.4 H (4.5-11.0) X10^3/uL RBC 4.65 (4.5-5.9) X10^6/uL Hgb 15.5 (13.5-17.5) g/dL Hct 45.9 (41-53) % MCV 98.7 (80-100) fL MCH 33.3 (26-34) PG MCHC 33.7 (30-36) % RDW 12.9 (11.6-14.8) % Plt Count 172 (150-400) X10^3/uL Neut % (Auto) 84.6 H (50-75) % Lymph % (Auto) 5.9 L (25-40) % [place] % (Auto) 7.6 (3-14) % Eos % (Auto) 1.5 L (2-4) % Baso % (Auto) 0.4 (0-2) % Neut # (Auto) 37060 H (3667-8182) /uL Lymph # (Auto) 800 L (1214-9953) /uL [place] # (Auto) 1000 H (0-900) /uL Eos # (Auto) 200 (0-450) /uL Baso # (Auto) 100 (0-100) /uL Sodium 137 (137-145) mmol/L Potassium 4.1 (3.4-5.1) mmol/L Chloride 107 (98-107) mmol/L Carbon Dioxide 24 (22-32) mmol/L BUN 21 H (9-20) mg/dL Creatinine 0.95 (0.66-1.25) mg/dL Estimated GFR > 60 (>60) mL/min BUN/Creatinine Ratio 22.1 H (6-22) Glucose 106 (80-110) mg/dL Lactate 1.3 (0.7-2.1) mmol/L Calcium 9.2 (8.4-10.2) mg/dL Total Bilirubin 1.5 H (0.2-1.3) mg/dL AST 29 (17-59) IU/L ALT 26 (<50) IU/L Alkaline Phosphatase 78 (38-126) U/L Total Protein 7.6 (6.3-8.2) g/dL Albumin 4.1 (3.5-5.0) g/dL Globulin 3.5 (1.7-4.1) g/dL Albumin/Globulin Ratio 1.2 (1.0-2.8) Lipase 31 D (23-300) U/L Urine Color Yellow Urine Appearance Clear Urine pH 5.5 (4.5-8.0) Ur Specific [place] 1.025 (1.000-1.035) Urine Protein Trace H (Negative) Urine Glucose (UA) Negative (Negative) g/dL Urine Ketones 3+ H (NEGATIVE) Urine Occult Blood Trace-intact (Negative) Urine Nitrate Negative (Negative) Urine Bilirubin 1+ H (NEGATIVE) Ur Bilirubin Confirm Negative (Negative) Urine Urobilinogen 1.0 (0.2) E.U./dL Ur Leukocyte Esterase Negative (NEGATIVE) Urine RBC 5-10/hpf H (0-5/HPF) Urine WBC 1-5/hpf (0-5/HPF) Ur Squamous Epith Cells None seen (0-5/HPF) Urine Bacteria None seen (None) Ur Culture Indicated? Cult not indicated Vol Urine Centrifuged 10ml (spun) Imaging Data CT scan - abdomen/pelvis: Radiologist's Impression: PROCEDURE: CT ABDOMEN PELVIS W CON INDICATIONS: right sided pain, known kidney stone on left TECHNIQUE: After the administration of intravenous contrast, axial sections acquired from the lung bases to the pubic symphysis. Coronal and sagittal reformats were performed. For radiation dose reduction, the following was used: automated exposure control, adjustment of mA and/or kV according to patient size. COMPARISON: [facility], CT, CT ABDOMEN PELVIS WO CON, 09/07/2023, 21:55. FINDINGS: Image quality: Diagnostic. Lower Chest: Minimal right basilar atelectasis. Minimal right pleural effusion. ABDOMEN: Liver: No solid mass. Gallbladder: Distended with small gallstone. No wall thickening. Biliary ducts: No biliary dilation. Pancreas: No ductal dilation. Spleen: Size is within normal limits. Adrenal Glands: No adrenal nodules. Kidneys and Ureters: The left ureteral stone has migrated distally, and is now just proximal to the ureterovesical junction. Left hydronephrosis has resolved. Stomach and Bowel: Acute perforated sigmoid diverticulitis with associated localized in generalized free air. No abscess cavity. Peritoneum: No abnormal intraperitoneal fluid. Free air is present. These are tiny flecks of air. Ventral Wall: No significant ventral hernia. Abdominal Nodes: No retroperitoneal or mesenteric adenopathy by size criteria. Vessels: Aorta and inferior vena cava are normal in size. PELVIS: Pelvic Organs: Mild prostate enlargement.. Bladder: No bladder wall thickening, accounting for underdistention. Pelvic Nodes: No enlarged lymph nodes. Miscellaneous: Small fat containing right inguinal hernia.. Bones: No aggressive osseous abnormality. IMPRESSION: 1. Perforated acute sigmoid diverticulitis with generalized free air. No abscess. 2. Interval advancement of the 4 mm left ureteral stone which is now just above the ureterovesical junction. There is currently no left hydronephrosis. Comment: Findings were discussed with Dr. Patterson on 09/13/2023 at 0828 hours Dictated by: Karan Todd M.D. on 09/13/2023 at 8:23 MDM Narrative Medical decision making narrative: Patient is 62-year-old male with known left kidney stone presenting today with worsening abdominal pain and right-sided pain. He is tender on the right with rebound pain. He is taking oxycodone but no longer helping. He is afebrile. Blood work has been reviewed WBC 13.4, lactate 1.3 creatinine 0.95 Imaging reviewed shows localized diverticulitis perforation with free air and no abscess Patient is found to have perforated diverticula with mild leukocytosis without evidence of sepsis. He is given Zosyn and Flagyl along with Toradol. Pain is much improved after Toradol Dr. Carvajal updated patient's symptoms test results and agrees to admission Discharge Plan Departure Patient Disposition: Admitted As Inpatient Clinical Impression: Perforated diverticulum Admit Date/Time: 09/13/23 09:12 Admit Provider: Abril Carvajal
--- NOTE | 2023-09-13 07:46 | DI.CT.S_ITS ---
PROCEDURE: CT ABDOMEN PELVIS W CON INDICATIONS: right sided pain, known kidney stone on left TECHNIQUE: After the administration of intravenous contrast, axial sections acquired from the lung bases to the pubic symphysis. Coronal and sagittal reformats were performed. For radiation dose reduction, the following was used: automated exposure control, adjustment of mA and/or kV according to patient size. COMPARISON: [facility], CT, CT ABDOMEN PELVIS WO CON, 09/07/2023, 21:55. FINDINGS: Image quality: Diagnostic. Lower Chest: Minimal right basilar atelectasis. Minimal right pleural effusion. ABDOMEN: Liver: No solid mass. Gallbladder: Distended with small gallstone. No wall thickening. Biliary ducts: No biliary dilation. Pancreas: No ductal dilation. Spleen: Size is within normal limits. Adrenal Glands: No adrenal nodules. Kidneys and Ureters: The left ureteral stone has migrated distally, and is now just proximal to the ureterovesical junction. Left hydronephrosis has resolved. Stomach and Bowel: Acute perforated sigmoid diverticulitis with associated localized in generalized free air. No abscess cavity. Peritoneum: No abnormal intraperitoneal fluid. Free air is present. These are tiny flecks of air. Ventral Wall: No significant ventral hernia. Abdominal Nodes: No retroperitoneal or mesenteric adenopathy by size criteria. Vessels: Aorta and inferior vena cava are normal in size. PELVIS: Pelvic Organs: Mild prostate enlargement.. Bladder: No bladder wall thickening, accounting for underdistention. Pelvic Nodes: No enlarged lymph nodes. Miscellaneous: Small fat containing right inguinal hernia.. Bones: No aggressive osseous abnormality. IMPRESSION: 1. Perforated acute sigmoid diverticulitis with generalized free air. No abscess. 2. Interval advancement of the 4 mm left ureteral stone which is now just above the ureterovesical junction. There is currently no left hydronephrosis. Comment: Findings were discussed with Dr. Patterson on 09/13/2023 at 0828 hours Dictated by: Karan Todd M.D. on 09/13/2023 at 8:23 Approved by: Karan Todd M.D. on 09/13/2023 at 8:28
[2023-09-13] MEDS: KETOROLAC 30 MG/ML VIAL IV (07:54)
[2023-09-13 08:04] LABS: Add Manual Diff / Slide Review NO; Basophils Absolute Auto 100 /uL (0-100); Basophils Percent Auto 0.4 % (0-2); Eosinophils Absolute Auto 200 /uL (0-450); Eosinophils Percent Auto 1.5 % (2-4); Hematocrit 45.9 % (41-53); Hemoglobin 15.5 g/dL (13.5-17.5); Lymphocytes Absolute Auto 800 /uL (1100-4500); Lymphocytes Percent Auto 5.9 % (25-40); Mean Corpuscular HGB Conc 33.7 % (30-36); Mean Corpuscular Hemoglobin 33.3 PG (26-34); Mean Corpuscular Volume 98.7 fL (80-100); Monocytes Absolute Auto 1000 /uL (0-900); Monocytes Percent Auto 7.6 % (3-14); Neutrophils Absolute Auto 11300 /uL (1500-7000); Neutrophils Percent Auto 84.6 % (50-75); Platelet Count 172 X10^3/uL (150-400); Red Blood Cell Count 4.65 X10^6/uL (4.5-5.9); Red Cell Distribution Width 12.9 % (11.6-14.8); White Blood Cell Count 13.4 X10^3/uL (4.5-11.0)
[2023-09-13 08:15] LABS: Alanine Aminotransferase 26 IU/L (<50); Albumin 4.1 g/dL (3.5-5.0); Albumin Globulin Ratio 1.2 (1.0-2.8); Alkaline Phosphatase 78 U/L (38-126); Aspartate Aminotransferase 29 IU/L (17-59); BUN Creatinine Ratio 22.1 (6-22); Bilirubin Total 1.5 mg/dL (0.2-1.3); Blood Urea Nitrogen 21 mg/dL (9-20); Calcium 9.2 mg/dL (8.4-10.2); Carbon Dioxide 24 mmol/L (22-32); Chloride 107 mmol/L (98-107); Estimated Glomerular Filt Rate > 60 mL/min (>60); Globulin 3.5 g/dL (1.7-4.1); Glucose 106 mg/dL (80-110); HEMOLYSIS 43 (0-50); Lipase 31 U/L (23-300); Potassium 4.1 mmol/L (3.4-5.1); Sodium 137 mmol/L (137-145); Total Protein 7.6 g/dL (6.3-8.2)
[2023-09-13 08:40] LABS: Appearance Urine UA CLEAR; Bilirubin Urine UA 1+ (NEGATIVE); Color Urine UA YELLOW; Glucose Urine UA NEGATIVE (Negative); Ketones Urine UA 3+ (NEGATIVE); Leukocyte Esterase Urine UA NEGATIVE (NEGATIVE); Nitrite Urine UA NEGATIVE (Negative); Occult Blood Urine UA TRACE-INTACT (Negative); Protein Urine UA TRACE (Negative); Specific Gravity Urine UA 1.025 (1.000-1.035); pH Urine UA 5.5 (4.5-8.0)
[2023-09-13] MEDS: metroNIDAZOLE 500 MG/100 ML PIGGYBACK 100 MG IV (08:48)
[2023-09-13 08:50] LABS: Bacteria Urine None Seen; Culture Indicated Urine Cult Not Indicated; Ictotest Urine Negative (Negative); RBC Urine 5-10/HPF (0-5/HPF); Squamous Epithelial Cell Urine None Seen (0-5/HPF); Urine Volume 10mL (spun); WBC Urine 1-5/HPF (0-5/HPF)
[2023-09-13 08:52] LABS: Lactate (Lactic Acid) 1.3 mmol/L (0.7-2.1)
--- NOTE | 2023-09-13 09:53 | PC.NURSE ---
This RN gave verbal report to Brooke Acosta RN and brought up mixed zosyn and gave that medication to the RN.
[2023-09-13] MEDS: PIPERACILLIN/TAZO 4.5 GM in SODIUM CHLORIDE 0.9% 100 ML IV (10:07)
[2023-09-13] MEDS: OXYCODONE IR 5 MG TABLET PO ×2 (10:13→14:58)
[2023-09-13] MEDS: CELECOXIB 200 MG CAPSULE PO ×2 (11:59→20:41)
--- NOTE | 2023-09-13 12:00 | PM.HP.1 ---
History of Present Illness History of Present Illness Date Patient Seen: 09/13/23 Time Patient Seen: 12:00 Chief complaint: per pt diverticulitis & kidney stone Narrative: second episode of diverticulitis in 2 years. Last colonoscopy was 2 years ago. This episode over shadowed by passing for a kidney stone(also 2nd episode). Pain is left side and intermittent sharp. No nausea. [facility] Medical History Left arm pain Chronic neck pain Cervical radiculopathy Cervical spondylolysis Hypotestosteronism Hyperlipidemia Hearing loss Sleep apnea (~2009) Shoulder pain (~2004) Chronic back pain Carpal tunnel syndrome (~2004) Erectile dysfunction Preventative health care BPH (benign prostatic hyperplasia) Surgical History Anesthesia History of surgery on arm History of hernia repair History of back surgery History of hand surgery Social History household members: spouse Smoking Status: Former smoker alcohol intake: current Meds Home Medications and Allergies Home Medications Medication Instructions Recorded Confirmed Type tadalafil 5 mg tablet 5 mg PO DAILY PRN sexual activity 12/29/22 09/13/23 Rx #90 tabs tamsulosin 0.4 mg capsule 0.4 mg PO BEDTIME #90 caps 12/29/22 09/13/23 Rx gabapentin 300 mg capsule 300 mg PO .COMPLEX #90 caps 08/06/23 09/13/23 Rx lidocaine 5 % topical patch 1 patch topical DAILY #30 ea 08/06/23 09/13/23 Rx cefdinir 300 mg capsule 300 mg PO BID 10 days #20 caps 09/08/23 09/13/23 Rx naproxen 500 mg tablet 500 mg PO BID 7 days #14 tabs 09/08/23 09/13/23 Rx oxycodone-acetaminophen 5 mg-325 1 tab PO Q6H PRN pain #14 tabs 09/08/23 09/13/23 Rx mg tablet ibuprofen 600 mg tablet 600 mg PO 3XD 09/13/23 History trazodone 50 mg tablet 50 mg PO ONCE PM 09/13/23 History Allergies Allergy/AdvReac Type Severity Reaction Status Date / Time No Known Drug Allergies Allergy Verified 09/07/23 19:45 Review of Systems Review of Systems Narrative: still hasn't passed the stone ROS: Yes All systems reviewed with the patient and are negative except as otherwise documented Exam Vital Signs (past 8 hours): - 09/13/23 07:39 09/13/23 07:39 09/13/23 07:40 Temperature 97.9 F Pulse Rate 82 83 Respiratory Rate 18 Blood Pressure 160/81 H 160/81 H Pulse Oximetry 98 98 Oxygen Delivery Method Room Air Oxygen Flow Rate 09/13/23 08:14 09/13/23 08:15 09/13/23 08:15 Temperature Pulse Rate 73 74 Respiratory Rate Blood Pressure 123/75 Pulse Oximetry 96 94 Oxygen Delivery Method Oxygen Flow Rate 09/13/23 08:30 09/13/23 08:30 09/13/23 09:00 Temperature Pulse Rate 71 72 Respiratory Rate Blood Pressure 119/64 Pulse Oximetry 95 96 Oxygen Delivery Method Oxygen Flow Rate 09/13/23 09:00 09/13/23 09:15 09/13/23 09:15 Temperature Pulse Rate 70 Respiratory Rate Blood Pressure 130/73 124/76 Pulse Oximetry 95 Oxygen Delivery Method Oxygen Flow Rate 09/13/23 09:30 09/13/23 09:30 09/13/23 10:00 Temperature 98.2 F Pulse Rate 67 71 Respiratory Rate 19 Blood Pressure 119/64 153/84 H Pulse Oximetry 94 97 Oxygen Delivery Method Oxygen Flow Rate 0 Oxygen Delivery Method Room Air Oxygen Flow Rate 0 Narrative Exam Narrative: CT scan reviewed and agree with perforated diverticulitis, no abscess. Small amount of free air. Const General: cooperative and healthy appearing Nutritional Appearance: average body habitus Orientation: alert, awake and oriented x3 [facility] Head: normocephalic and atraumatic Ears: hearing grossly normal bilaterally Eyes Periorbital: periorbital findings normal Sclera: sclerae normal Neck Neck: trachea midline Resp Effort & Inspection: normal respiratory effort and able to speak in complete sentences Cardio Rate: regular rate Rhythm: regular rhythm GI Palpation: soft, No hernia and tender Skin General: elasticity normal and turgor normal Neuro General: patient alert, patient awake and patient oriented x3 Cognition: normal cognition Psych Mental Status: mental status grossly normal Attitude: cooperative Judgment: judgment good Objective Labs 09/13/23 07:44 09/13/23 07:44 Labs: Laboratory Results - last 24 hr 09/13/23 09/13/23 07:44 08:10 WBC 13.4 H RBC 4.65 Hgb 15.5 Hct 45.9 MCV 98.7 MCH 33.3 MCHC 33.7 RDW 12.9 Plt Count 172 Neut % (Auto) 84.6 H Lymph % (Auto) 5.9 L [place] % (Auto) 7.6 Eos % (Auto) 1.5 L Baso % (Auto) 0.4 Neut # (Auto) 92219 H Lymph # (Auto) 800 L [place] # (Auto) 1000 H Eos # (Auto) 200 Baso # (Auto) 100 Sodium 137 Potassium 4.1 Chloride 107 Carbon Dioxide 24 BUN 21 H Creatinine 0.95 Estimated GFR > 60 BUN/Creatinine Ratio 22.1 H Glucose 106 Lactate 1.3 Calcium 9.2 Total Bilirubin 1.5 H AST 29 ALT 26 Alkaline Phosphatase 78 Total Protein 7.6 Albumin 4.1 Globulin 3.5 Albumin/Globulin Ratio 1.2 Lipase 31 D Urine Color Yellow Urine Appearance Clear Urine pH 5.5 Ur Specific [place] 1.025 Urine Protein Trace H Urine Glucose (UA) Negative Urine Ketones 3+ H Urine Occult Blood Trace-intact Urine Nitrate Negative Urine Bilirubin 1+ H Ur Bilirubin Confirm Negative Urine Urobilinogen 1.0 Ur Leukocyte Esterase Negative Urine RBC 5-10/hpf H Urine WBC 1-5/hpf Ur Squamous Epith Cells None seen Urine Bacteria None seen Ur Culture Indicated? Cult not indicated Vol Urine Centrifuged 10ml (spun) Assessment & Plan Assessment & Plan narrative: perforated sigmoid diverticulitis w/o obstruction,bleeding or abscess. Kidney stones Plan: Medical management. Time-Based Coding :: 40 minutes total spent with patient and on the chart (including review of chart, obtaining history, exam, reviewing outside data, placing orders, documenting exam and treatment plan, and counseling patient) on 09/13/23.
[2023-09-13 12:12] LABS: MRSA (Nasal) PCR NOT DETECTED (Not Detect)
--- NOTE | 2023-09-13 13:28 | PM.CALLCOV.1 ---
Call Coverage Note Note Date of Patient Contact: 09/13/23 Time of Patient Contact: 13:28 Narrative of Care Provided: Left renal stone discussed with Urologist. 4mm size should pass, recommended tordal and flomax.
[2023-09-13] MEDS: PIPERACILLIN/TAZO 3.375 GM in SODIUM CHLORIDE 0.9% 100 ML IV ×2 (14:45→22:04)
[2023-09-13] MEDS: OXYCODONE IR 5 MG TABLET 10 MG PO ×2 (18:59→22:04)
[2023-09-13] MEDS: CEFDINIR 300 MG CAPSULE PO (20:41)
[2023-09-13] MEDS: TAMSULOSIN 0.4 MG CAPSULE PO (20:41)
[2023-09-13] MEDS: SODIUM CHLORIDE 0.9% FLUSH 10 ML IV (20:41)
[2023-09-14] VITALS: BP 121/64; PULSE 68; RESP 17; TEMP 36.2; O2SAT 96
[2023-09-14 04:00] VITALS: BP 120/68; PULSE 66; RESP 16; TEMP 36.5; O2SAT 97
[2023-09-14 05:35] LABS: Add Manual Diff / Slide Review NO; Basophils Absolute Auto 0 /uL (0-100); Basophils Percent Auto 0.5 % (0-2); Eosinophils Absolute Auto 200 /uL (0-450); Eosinophils Percent Auto 2.4 % (2-4); Hematocrit 39.5 % (41-53); Hemoglobin 13.6 g/dL (13.5-17.5); Lymphocytes Absolute Auto 700 /uL (1100-4500); Lymphocytes Percent Auto 8.8 % (25-40); Mean Corpuscular HGB Conc 34.4 % (30-36); Mean Corpuscular Hemoglobin 33.8 PG (26-34); Mean Corpuscular Volume 98.3 fL (80-100); Monocytes Absolute Auto 800 /uL (0-900); Monocytes Percent Auto 9.5 % (3-14); Neutrophils Absolute Auto 6500 /uL (1500-7000); Neutrophils Percent Auto 78.8 % (50-75); Platelet Count 177 X10^3/uL (150-400); Red Blood Cell Count 4.02 X10^6/uL (4.5-5.9); Red Cell Distribution Width 12.7 % (11.6-14.8); White Blood Cell Count 8.3 X10^3/uL (4.5-11.0)
[2023-09-14] MEDS: PIPERACILLIN/TAZO 3.375 GM in SODIUM CHLORIDE 0.9% 100 ML IV (06:02)
[2023-09-14 08:00] VITALS: BP 125/81; PULSE 71; RESP 17; O2SAT 96
[2023-09-14] MEDS: OXYCODONE IR 5 MG TABLET PO (08:15)
[2023-09-14] MEDS: CEFDINIR 300 MG CAPSULE PO (08:16)
[2023-09-14] MEDS: LIDOCAINE 5% PATCH 1 EACH TOP (08:16)
[2023-09-14] MEDS: CELECOXIB 200 MG CAPSULE PO (08:16)
[2023-09-14] MEDS: SODIUM CHLORIDE 0.9% FLUSH 10 ML IV (08:17)
--- NOTE | 2023-09-14 09:50 | P.DS_ITS ---
History of Present Illness History of Present Illness Date Patient Seen: 09/14/23 Time Patient Seen: 13:20 Chief complaint: per pt diverticulitis & kidney stone Narrative: Jorge is a 62-year-old man history of diverticulitis who presented to the hospital with acute onset of abdominal pain. On arrival afebrile vital signs within normal limits. CT chest abdomen pelvis demonstrates diverticulitis, small amount of free air no abscess. Discharge Providers Provider Date of admission: 09/13/23 09:12 Discharge Date: 09/14/23 Primary care physician: Marlo Simmons DO Discharge provider: Aurelio Hernandez MD Summary Hospital Course Discharge Diagnosis: Diverticulitis Hospital Course: Perforated diverticulitis without abscess successfully treated with non operative antibiotic therapy. His leukocytosis and pain resolved. At discharge she is tolerant of a regular diet ambulatory afebrile and pain is well controlled with oral medication. We will discharge home on p.o. antibiotic therapy and follow up with the surgical clinic in 2 weeks for re-evaluation Exam Vital Signs (past 8 hours): - 09/14/23 04:00 09/14/23 07:00 09/14/23 08:00 Temperature 97.7 F Pulse Rate 66 71 Respiratory Rate 16 17 Blood Pressure 120/68 125/81 Pulse Oximetry 97 96 Oxygen Delivery Method Room Air Oxygen Flow Rate 0 0 Oxygen Delivery Method Room Air Oxygen Flow Rate 0 Narrative Exam Narrative: General adult man alert oriented no acute distress Chest nonlabored respiration Abdomen soft appropriately tender to palpation lower midline. No peritonitis Objective Labs 09/14/23 03:56 09/13/23 07:44 Labs: Laboratory Results - last 24 hr 09/13/23 09/14/23 10:28 03:56 WBC 8.3 RBC 4.02 L Hgb 13.6 Hct 39.5 L MCV 98.3 MCH 33.8 MCHC 34.4 RDW 12.7 Plt Count 177 Neut % (Auto) 78.8 H Lymph % (Auto) 8.8 L [place] % (Auto) 9.5 Eos % (Auto) 2.4 Baso % (Auto) 0.5 Neut # (Auto) 6500 Lymph # (Auto) 700 L [place] # (Auto) 800 Eos # (Auto) 200 Baso # (Auto) 0 Nasal Screen MRSA (PCR) Not detected [facility] Medical History Left arm pain Chronic neck pain Cervical radiculopathy Cervical spondylolysis Hypotestosteronism Hyperlipidemia Hearing loss Sleep apnea (~2009) Shoulder pain (~2004) Chronic back pain Carpal tunnel syndrome (~2004) Erectile dysfunction Preventative health care BPH (benign prostatic hyperplasia) Surgical History Anesthesia History of surgery on arm History of hernia repair History of back surgery History of hand surgery Social History household members: spouse Smoking Status: Former smoker alcohol intake: current Discharge Plan Discharge Plan Patient Disposition: Home Provider Discharge Comment: Returned to the emergency department for worsening abdominal pain nausea fever greater than 101.5. Follow up with General surgery Clinic in 2 weeks' time for re-evaluation. Discharge orders & Medications Prescriptions: Continued tadalafil 5 mg tablet 5 mg PO DAILY PRN (Reason: sexual activity) Qty: 90 3RF Rx Instructions: administer approximately 30min before sexual activity; do not use more than 1 dose per 24hrs tamsulosin 0.4 mg capsule 0.4 mg PO BEDTIME Qty: 90 3RF Rx Instructions: take at bedtime oxycodone-acetaminophen 5-325 mg tablet 1 tab PO Q6H PRN (Reason: pain) Qty: 14 0RF cefdinir 300 mg capsule 300 mg PO BID 10 Days Qty: 20 0RF naproxen 500 mg tablet 500 mg PO BID 7 Days Qty: 14 0RF ibuprofen 600 mg tablet 600 mg PO 3XD lidocaine 5 % adhesive patch,medicated 1 patch topical DAILY Qty: 30 1RF Rx Instructions: leave on most painful area for 12 hrs gabapentin 300 mg capsule 300 mg PO .COMPLEX Qty: 90 2RF Rx Instructions: 1 PO QHS x3 days if tolerated, 1 PO BID x3 days if tolerated, 1 PO TID Medication counseling provided by Pharmacist: Yes Follow up/Referrals: Aurelio Hernandez MD [Physician] - 2 Weeks Marlo Simmons DO [Primary Care Provider] - Diet/Activity/Treatments Diet: Diet as Tolerated Skin/Wound/Dressing Care Report to your healthcare provider any signs of infection, such as:: increased pain Visit Report/Discharge Packet Instructions: DI for Kidney Stones, DI for Diverticulitis, DI for Prescription Opioid Use Stand Alone Forms: Patient Portal/API, Stroke Signs & Symptoms Discharge Data Primary Care Provider: Marlo Simmons Attending Provider: Abril Carvajal Admit Date/Time: 09/13/23 09:12
--- NOTE | 2023-09-14 11:02 | CM.DANOTE ---
Initial DCP Assessment Note Pt is a 62 yo male, resident of [place], arrivs with diverticulitis and kidney stone, discharged today with improvement in sx and recommendation for close outpatient follow up. PCP: Marlo Simmons Payer: Lucie Reviewed chart, patient works for as an RT, lives independently with spouse on [place]. No needs identified from this CM team. Discharge order in place. No barriers identified at this time to patient's safe discharge home w/family to assist as needed; close outpatient f/u recommended. CM team will plan to follow clinical course closely in case any DC needs or concerns arise. RONAK [place] Discharge Planning/Care Management CM Discharge Assessment Start: 09/14/23 11:01 Freq: Status: Active Protocol: Document 09/14/23 11:01 ZI (Rec: 09/14/23 11:02 ZI [id number]) Discharge Planning Assessment Assigned Technical Agronomist RONAK Mishra DPOA/Assigned Designee Name Jennifer Ochoa, spouse Contact Information [phone] Advance Directives? No History Provided By Patient,Medical Record Prior Living Arrangements House Household Members spouse Type of transporation used prior to Drives own vehicle admit Independent with ADL's Yes Is patient alert and oriented? Yes Barriers to Discharge No Discharge Plan Home Transportation Arrangement Spouse Referrals Initiated None needed
--- NOTE | 2023-09-14 11:24 | PC.NURSE ---
pt agreeable to discharge plan. IV removed, education provided on follow up, diet, worsening symptoms, etc. Pt ambulated to private vehicle at approximately 1115
== END 2023-09-14 11:15 | disposition home or self-care (01) ==
LOC: ED 09:13 → ICU 10:46 → AC 09-14 11:23 → ICU 09-14 11:23
PROVIDERS: Admitting Provider Surgery; Emergency Provider Emergency Medicine; PCP Family Medicine; Referring Provider Emergency Medicine; Visit Provider Surgery
DX: K57.20 Diverticulitis of large intestine with perforation and abscess without bleeding (principal); N20.0 Calculus of kidney; Z11.52 Encounter for screening for COVID-19
CPT/HCPCS: 36415; 51798; 74177; 80053; 81001; 83605; 83690; 85025; 87797; 96365; 96366; 96367; 96375; 99284; G0378; J1885; J2543; Q9967

== ENCOUNTER 2023-09-25 09:52 | Inpatient (IN) | payer OTHER, SELFPAY ==
[2023-09-13 09:54] VITALS: BMI 29.3
[2023-09-25] VITALS (15 sets, daily range): BP systolic 111–139; BP diastolic 66–89; PULSE 73–98; RESP 12–22; TEMP 37.1–37.3; O2SAT 94–99; BMI 28.1
--- NOTE | 2023-09-25 10:27 | EKG_ITS ---
[facility] [address] [place] [address] Test Date: 2023-09-25 Pat Name: Jorge Ochoa Department: Room: 216 Gender: Male Plant [employer]eder: : 1960 Requested By: Order Number: [id number] Reading MD: Jamal Crawford Measurements Intervals [place] Rate: 81 P: 49 OR: 152 QRS: 15 QRSD: 80 T: 15 QT: 382 QTc: 443 Interpretive Statements Normal sinus rhythm Electronically Signed On 09-27-2023 7:35:03 PDT by Jamal Crawford
[2023-09-25 10:49] LABS: Add Manual Diff / Slide Review NO; Basophils Absolute Auto 0 /uL (0-100); Basophils Percent Auto 0.2 % (0-2); Eosinophils Absolute Auto 100 /uL (0-450); Eosinophils Percent Auto 0.4 % (2-4); Hematocrit 41.4 % (41-53); Hemoglobin 13.9 g/dL (13.5-17.5); Lymphocytes Absolute Auto 900 /uL (1100-4500); Lymphocytes Percent Auto 4.6 % (25-40); Mean Corpuscular HGB Conc 33.7 % (30-36); Mean Corpuscular Hemoglobin 32.8 PG (26-34); Mean Corpuscular Volume 97.3 fL (80-100); Monocytes Absolute Auto 1700 /uL (0-900); Monocytes Percent Auto 8.8 % (3-14); Neutrophils Absolute Auto 16200 /uL (1500-7000); Platelet Count 421 X10^3/uL (150-400); Red Blood Cell Count 4.26 X10^6/uL (4.5-5.9); Red Cell Distribution Width 12.8 % (11.6-14.8); White Blood Cell Count 18.9 X10^3/uL (4.5-11.0)
[2023-09-25 11:06] LABS: Alanine Aminotransferase 191 IU/L (<50); Albumin 3.9 g/dL (3.5-5.0); Albumin Globulin Ratio 1.1 (1.0-2.8); Alkaline Phosphatase 216 U/L (38-126); Aspartate Aminotransferase 119 IU/L (17-59); BUN Creatinine Ratio 20.6 (6-22); Bilirubin Total 1.5 mg/dL (0.2-1.3); Blood Urea Nitrogen 20 mg/dL (9-20); Calcium 8.9 mg/dL (8.4-10.2); Carbon Dioxide 20 mmol/L (22-32); Chloride 103 mmol/L (98-107); Estimated Glomerular Filt Rate > 60 mL/min (>60); Globulin 3.5 g/dL (1.7-4.1); Glucose 146 mg/dL (80-110); HEMOLYSIS < 15 (0-50); Lipase 68 U/L (23-300); Potassium 4.4 mmol/L (3.4-5.1); Sodium 132 mmol/L (137-145); Total Protein 7.4 g/dL (6.3-8.2)
--- NOTE | 2023-09-25 14:34 | ED_ITS ---
HPI - Abdominal Pain General Chief Complaint: Abdominal Pain Stated Complaint: diverticulitis, gall stone Time Seen by Provider: 09/25/23 14:19 Source: patient Mode of arrival: Ambulatory History of Present Illness HPI narrative: 63-year-old male with history of diverticulitis presents for generalized lower abdominal pain with nausea. Patient recently admitted from 09/12 to 09/13 for perforated diverticulitis. Patient improved on IV antibiotics and was discharged on cefdinir, which patient states he has been taking as prescribed. Patient states that his pain is worsening and not controlled with [id number] pain medications. Denies fevers or chills. Related Data Home Medications Medication Instructions Recorded Confirmed ibuprofen 600 mg tablet 600 mg PO 3XD 09/13/23 09/25/23 gabapentin 300 mg capsule 600 mg PO QPM 09/25/23 09/25/23 lorazepam 0.5 mg tablet 0.5 mg PO ONCE PM PRN insomnia 09/26/23 09/26/23 trazodone 50 mg tablet 50 mg PO ONCE PM 09/26/23 09/26/23 Previous Rx's Medication Instructions Recorded tadalafil 5 mg tablet 5 mg PO DAILY PRN sexual activity 12/29/22 #90 tabs oxycodone-acetaminophen 5 mg-325 1 tab PO Q6H PRN pain #14 tabs 09/19/23 mg tablet tamsulosin 0.4 mg capsule 0.4 mg PO BID #180 caps 09/19/23 Allergies Allergy/AdvReac Type Severity Reaction Status Date / Time No Known Drug Allergies Allergy Verified 09/25/23 10:24 Patient History Medical History Cholelithiasis Left arm pain Chronic neck pain Cervical radiculopathy Cervical spondylolysis Hypotestosteronism Hyperlipidemia Hearing loss Sleep apnea (~2009) Shoulder pain (~2004) Chronic back pain Carpal tunnel syndrome (~2004) Erectile dysfunction Preventative health care BPH (benign prostatic hyperplasia) Surgical History Anesthesia History of surgery on arm History of hernia repair History of back surgery History of hand surgery Social History household members: spouse Smoking Status: Former smoker alcohol intake: current Smoking Status: Former smoker alcohol intake frequency: holidays/special occasions only Substance Use Type: marijuana Exam Initial Vital Signs Initial Vital Signs: Vital Signs Temperature 99.2 F 09/25/23 10:24 Pulse Rate 95 H 09/25/23 10:24 Respiratory Rate 14 09/25/23 10:24 Blood Pressure 111/69 09/25/23 10:24 Pulse Oximetry 97 09/25/23 10:24 Oxygen Delivery Method Room Air 09/25/23 10:24 Const: Awake, alert, no acute distress, nontoxic appearing Cardiac: regular rate, regular rhythm RESP: unlabored, clear bilaterally, no wheezing GI: Soft, generalized tenderness to deep palpation in bilateral lower quadrants without rebound or guarding Skin: Warm, Dry, intact, no rashes Neuro: AO x3, CN II-XII grossly intact, moves all extremities Course Orders Ordered: Hydrocodone Bitart/Acetaminophen (Hydrocodone/Acet 5/325 Tablet) 2 tab PO Q4H PRN PRN Reason: Pain, Severe (7-10) Last Admin: 09/26/23 00:52 Dose: 2 tab Documented By: Admin: 09/25/23 20:10 Dose: 2 tab Documented By: NICOLE Hydrocodone Bitart/Acetaminophen (Hydrocodone/Acet 5/325 Tablet) 1 tab PO Q4H PRN PRN Reason: Pain, Moderate (4-6) Hydromorphone HCl (Hydromorphone 0.5 Mg Inj) 0.5 mg IV Q2H PRN PRN Reason: Pain, Severe (7-10) Last Admin: 09/26/23 15:33 Dose: 0.5 mg Documented By: Admin: 09/26/23 12:25 Dose: 0.5 mg Documented By: Admin: 09/26/23 09:05 Dose: 0.5 mg Documented By: Admin: 09/26/23 05:05 Dose: 0.5 mg Documented By: NICOLE Sodium Chloride (Normal Saline 0.9%) 1,000 mls @ 100 mls/hr IV CONT RASHMI Last Admin: 09/26/23 17:03 Dose: 100 mls/hr Documented By: Infusion: 09/26/23 15:07 Dose: Infused Documented By: Admin: 09/26/23 05:07 Dose: 100 mls/hr Documented By: Infusion: 09/26/23 05:07 Dose: Infused Documented By: Admin: 09/25/23 19:57 Dose: 100 mls/hr Documented By: NICOLE Sodium Chloride (Normal Saline 0.9%) 250 mls @ 21 mls/hr IV Q24H PRN PRN Reason: Flush Last Admin: 09/25/23 20:00 Dose: 21 mls/hr Documented By: NICOLE Piperacillin Sod/Tazobactam (Sod 3.375 gm/ Sodium Chloride) 100 mls @ 25 mls/hr IV Q8H RASHMI Last Admin: 09/26/23 15:34 Dose: 25 mls/hr Documented By: TANMAY Ibuprofen (Ibuprofen 600 Mg Tablet) 600 mg PO Q6H PRN PRN Reason: Fever/Mild Pain (1-3) Naloxone HCl (Naloxone 0.4 Mg/Ml Vial) 0.2 mg IV Q2MIN PRN PRN Reason: Opiate Reversal Ondansetron HCl (Ondansetron 4 Mg/2 Ml Inj) 4 mg IV Q8HR PRN PRN Reason: Nausea And Vomiting Last Admin: 09/26/23 15:33 Dose: 4 mg Documented By: Admin: 09/26/23 09:11 Dose: 4 mg Documented By: TANMAY Sodium Chloride (Sodium Chloride 0.9% Flush) 10 ml IV PRN PRN PRN Reason: Flush Sodium Chloride (Sodium Chloride 0.9% Flush) 10 ml IV BID [facility] Last Admin: 09/26/23 15:34 Dose: 10 ml Documented By: Admin: 09/26/23 09:06 Dose: Not Given Documented By: Admin: 09/25/23 19:57 Dose: 10 ml Documented By: NICOLE Tamsulosin HCl (Tamsulosin 0.4 Mg Capsule) 0.4 mg PO BID [facility] Discontinued Medications Fentanyl (Fentanyl 100 Mcg/2 Ml Inj) 100 mcg 1 mcg/kg (100 mcg) IV NOW ONE Stop: 09/26/23 13:10 Last Admin: 09/26/23 14:20 Dose: 75 mcg Documented By: Hydromorphone HCl (Hydromorphone 1 Mg Inj) 1 mg IV NOW ONE Stop: 09/25/23 17:15 Last Admin: 09/25/23 17:20 Dose: 1 mg Documented By: REBEKA Sodium Chloride (Normal Saline 0.9%) 1,000 mls @ 1,000 mls/hr IV BOLUS ONE Stop: 09/25/23 15:34 Last Infusion: 09/25/23 17:13 Dose: Infused Documented By: Admin: 09/25/23 14:50 Dose: 1,000 mls/hr Documented By: REBEKA Piperacillin Sod/Tazobactam (Sod 4.5 gm/ Sodium Chloride) 100 mls @ 200 mls/hr IV NOW ONE Stop: 09/25/23 15:33 Last Infusion: 09/25/23 17:13 Dose: Infused Documented By: Admin: 09/25/23 15:46 Dose: 200 mls/hr Documented By: REBEKA Piperacillin Sod/Tazobactam (Sod 3.375 gm/ Sodium Chloride) 100 mls @ 25 mls/hr IV Q8H RASHMI Last Infusion: 09/26/23 12:47 Dose: Infused Documented By: Admin: 09/26/23 12:46 Dose: Not Given Documented By: Admin: 09/26/23 04:00 Dose: 25 mls/hr Documented By: Infusion: 09/26/23 00:52 Dose: Infused Documented By: Admin: 09/25/23 20:01 Dose: 25 mls/hr Documented By: NICOLE Midazolam HCl (Midazolam 2 Mg/2 Ml Vial) 2 mg IV NOW ONE Stop: 09/26/23 13:08 Last Admin: 09/26/23 14:20 Dose: 1.5 mg Documented By: Morphine Sulfate (Morphine 4 Mg/Ml Inj) 4 mg IV NOW ONE Stop: 09/25/23 14:36 Last Admin: 09/25/23 14:52 Dose: 4 mg Documented By: REBEKA Ondansetron HCl (Ondansetron 4 Mg/2 Ml Inj) 4 mg IV NOW PRN PRN Reason: Nausea And Vomiting Ondansetron HCl (Ondansetron 4 Mg Odt) 4 mg PO NOW PRN PRN Reason: Nausea And Vomiting Ondansetron HCl (Ondansetron 4 Mg/2 Ml Inj) 4 mg IV NOW ONE Stop: 09/25/23 14:36 Last Admin: 09/25/23 14:51 Dose: 4 mg Documented By: REBEKA Vital Signs Vital signs: Vital Signs - 8 hr 09/25/23 10:24 09/25/23 14:08 09/25/23 14:09 Temperature 99.2 F 98.7 F Pulse Rate 95 H 96 H 95 H Respiratory Rate 14 12 Blood Pressure 111/69 Pulse Oximetry 97 94 98 Oxygen Delivery Method Room Air Room Air 09/25/23 14:10 09/25/23 14:10 09/25/23 14:11 Temperature Pulse Rate 95 H Respiratory Rate Blood Pressure 139/79 139/79 Pulse Oximetry Oxygen Delivery Method 09/25/23 14:31 09/25/23 14:32 09/25/23 15:01 Temperature Pulse Rate 85 83 Respiratory Rate Blood Pressure 121/89 Pulse Oximetry 95 98 Oxygen Delivery Method 09/25/23 15:01 09/25/23 15:30 09/25/23 15:30 Temperature Pulse Rate 73 Respiratory Rate Blood Pressure 134/79 124/75 Pulse Oximetry 98 Oxygen Delivery Method 09/25/23 16:00 09/25/23 16:30 09/25/23 17:00 Temperature Pulse Rate 76 75 83 Respiratory Rate Blood Pressure Pulse Oximetry 99 98 98 Oxygen Delivery Method MDM - Abdominal Pain Differential Diagnosis Differential diagnosis: Likely abdominal pain, acute appendicitis and calculus of kidney Lab Data 09/26/23 09:35 09/26/23 06:22 Labs: Lab Results 09/25/23 09/25/23 09/25/23 Range/Units 10:32 14:50 15:41 WBC 18.9 H (4.5-11.0) X10^3/uL RBC 4.26 L (4.5-5.9) X10^6/uL Hgb 13.9 (13.5-17.5) g/dL Hct 41.4 (41-53) % MCV 97.3 (80-100) fL MCH 32.8 (26-34) PG MCHC 33.7 (30-36) % RDW 12.8 (11.6-14.8) % Plt Count 421 H (150-400) X10^3/uL Neut % (Auto) 86.0 H (50-75) % Lymph % (Auto) 4.6 L (25-40) % [place] % (Auto) 8.8 (3-14) % Eos % (Auto) 0.4 L (2-4) % Baso % (Auto) 0.2 (0-2) % Neut # (Auto) 49994 H (4178-2465) /uL Lymph # (Auto) 900 L (3944-7518) /uL [place] # (Auto) 1700 H (0-900) /uL Eos # (Auto) 100 (0-450) /uL Baso # (Auto) 0 (0-100) /uL Sodium 132 L (137-145) mmol/L Potassium 4.4 (3.4-5.1) mmol/L Chloride 103 (98-107) mmol/L Carbon Dioxide 20 L (22-32) mmol/L BUN 20 (9-20) mg/dL Creatinine 0.97 (0.66-1.25) mg/dL Estimated GFR > 60 (>60) mL/min BUN/Creatinine Ratio 20.6 (6-22) Glucose 146 H (80-110) mg/dL Lactate 0.6 L (0.7-2.1) mmol/L Calcium 8.9 (8.4-10.2) mg/dL Total Bilirubin 1.5 H (0.2-1.3) mg/dL AST 119 H (17-59) IU/L ALT 191 H (<50) IU/L Alkaline Phosphatase 216 H (38-126) U/L Total Protein 7.4 (6.3-8.2) g/dL Albumin 3.9 (3.5-5.0) g/dL Globulin 3.5 (1.7-4.1) g/dL Albumin/Globulin Ratio 1.1 (1.0-2.8) Lipase 68 (23-300) U/L Urine RBC 0-1/hpf (0-5/HPF) Urine WBC 0-1/hpf (0-5/HPF) Ur Squamous Epith Cells 0-1 /hpf (0-5/HPF) Urine Bacteria None seen (None) Vol Urine Centrifuged 10ml (spun) Point of care testing: Urine Dip Bedside Urine Glucose Negative Bedside Urine Bilirubin - Negative Bedside Urine Ketone - Negative Urine Specific [place] 1.015 Bedside Urine Occult Blood - Negative Bedside Urine pH 6.0 Bedside Urine Protein +/- 15 Bedside Urine Urobilinogen - Negative Bedside Urine Nitrite - Negative Bedside Urine Leukocytes - Negative Esterase Imaging Data CT scan - abdomen/pelvis: Radiologist's Impression: PROCEDURE: CT ABDOMEN PELVIS W CON INDICATIONS: LOWER ABD PAIN, RECENT HX PERF DIVERTICULITIS TECHNIQUE: After the administration of intravenous contrast, axial sections acquired from the lung bases to the pubic symphysis. Coronal and sagittal reformats were performed. For radiation dose reduction, the following was used: automated exposure control, adjustment of mA and/or kV according to patient size. COMPARISON: [facility], CT, CT ABDOMEN PELVIS W CON, 09/13/2023, 7:49. FINDINGS: Image quality: Diagnostic Lower chest: Unremarkable lung bases. Possible small hiatal hernia. Liver: Unremarkable liver Gallbladder and biliary system: Cholelithiasis. No biliary ductal dilation Pancreas: No ductal dilation Spleen: Nonenlarged Adrenals: No discrete nodules Kidneys: No hydronephrosis. 3-4 mm left distal ureter stone again seen. Vessels and lymph nodes: The main portal vein is patent. No pathologic lymph nodes by size criteria. No abdominal aortic aneurysm Bowel and peritoneum: No evidence of small bowel obstruction. Moderate inflammatory changes seen surrounding the sigmoid colon There is a fluid collection above the sigmoid measuring 6.2 x 3.7 cm, with [id number] surrounding fat stranding. Other smaller phlegmon are seen at the left pelvic sidewall and sigmoid mesocolon Body wall: Unremarkable Pelvis: Bladder is under distended. Nonspecific perivesicular fat stranding. Bones: Degenerative changes. No acute or suspicious osseous finding IMPRESSION: Increased inflammatory changes around the sigmoid now with pericolonic fluid collections. The largest collection measures up to 6.2 x 3.7 cm. (Coronal image 30) 3-4 mm left distal ureter stone again seen. Other findings as above Dictated by: Teo Larson M.D. on 09/25/2023 at 15:53 Approved by: Teo Larson M.D. on 09/25/2023 at 15:58 [facility] Narrative Medical decision making narrative: Patient with recurrent abdominal pain, recently had perforated diverticulitis and discharged on antibiotics. Patient reports compliance with his antibiotics. Abdomen is soft, no peritoneal signs, he was diffusely tender in the lower quadrants. Repeat labs and imaging to be ordered. Laboratory work shows WBC count 18.9, up from 8.3 at discharge. Hemoglobin 13.9, sodium 132, potassium 4.4, creatinine 0.97, T bili 1.5, AST 119, ALT 191, alk phos 216, up from previous hospital stay. Repeat CT of the abdomen and pelvis shows developing abscess in the lower abdomen. CT of the abdomen and pelvis discussed with on-call surgeon Dr. Rand. He requested that we reach out to [facility] interventional radiology to see if a drain could be placed. IV Zosyn ordered for coverage. Discussed patient's CT findings with on-call interventional radiology at [facility], who states that there does appear to be a window to reach into the abscess, however this could not be performed today and she was not on-call tomorrow. The oncoming interventional radiologist requested a CT of the abdomen and pelvis tomorrow morning and then would re-evaluate to see if drain placement as possible. Discussed interventional radiology recommendations with Dr. Rand of General surgery, who will keep the patient in the hospital tonight for IV antibiotics and we will rediscuss possible transfer for drain placement tomorrow. Patient in agreement with plan Critical Care Time Critical Care Time Critical Care Time: Yes Total Critical Care Time: 39 Attestation: Intra-abdominal abscess requiring admission to hospital, IV antibiotics, frequent hemodynamic reassessments. Discharge Plan Departure Patient Disposition: Admitted as Observation Clinical Impression: Intra-abdominal abscess Admit Date/Time: 09/25/23 17:10 Admit Provider: Rodri Rand
[2023-09-25] MEDS: SODIUM CHLORIDE 0.9% 1,000 ML 1000 ML IV (14:50)
[2023-09-25] MEDS: ONDANSETRON 4 MG/2 ML INJ IV (14:51)
[2023-09-25] MEDS: MORPHINE 4 MG/ML INJ IV (14:52)
[2023-09-25 15:33] LABS: Urine Volume 10mL (spun)
[2023-09-25 15:34] LABS: Bacteria Urine None Seen; RBC Urine 0-1/HPF (0-5/HPF); Squamous Epithelial Cell Urine 0-1 /HPF (0-5/HPF); WBC Urine 0-1/HPF (0-5/HPF)
[2023-09-25] MEDS: PIPERACILLIN/TAZO 4.5 GM in SODIUM CHLORIDE 0.9% 100 ML IV (15:46)
[2023-09-25 16:04] LABS: Lactate (Lactic Acid) 0.6 mmol/L (0.7-2.1)
[2023-09-25] MEDS: HYDROMORPHONE 1 MG INJ IV (17:20)
[2023-09-25] MEDS: SODIUM CHLORIDE 0.9% FLUSH 10 ML IV (19:57)
[2023-09-25] MEDS: SODIUM CHLORIDE 0.9% 1,000 ML 100 ML IV (19:57)
[2023-09-25] MEDS: SODIUM CHLORIDE 0.9% 250 ML 21 ML IV (20:00)
[2023-09-25] MEDS: PIPERACILLIN/TAZO 3.375 GM in SODIUM CHLORIDE 0.9% 100 ML IV (20:01)
[2023-09-25] MEDS: HYDROCODONE/ACET 5/325 TABLET 2 TAB PO (20:10)
--- NOTE | 2023-09-25 23:21 | PC.NURSE ---
Patient is alert and oriented. Breath sounds CTA with RA sat of 98%; using home CPAP. HRR. Denied nausea. BT present and passing flatus but reports pain/tenderness of 7/10 in LLQ on palpation so was medicated with Vicodin and reports pain is now minimal although still present. Voiding without dysuria but states he has slow stream related to prostate problems; using urinal and urine is clear but dark yellow. Is able to turn himself in bed and has been up to bathroom independently; fall risk score is low. Reminded to call for assist if feeling weak, dizzy or lightheaded and verbalizes understanding. Allowed SCD's to be placed at start of shift but later removed them stating they were disrupting his ability to sleep.
[2023-09-26] VITALS (15 sets, daily range): BP systolic 112–154; BP diastolic 56–80; PULSE 72–98; RESP 12–16; TEMP 35.9–36.2; O2SAT 95–100
[2023-09-26] MEDS: HYDROCODONE/ACET 5/325 TABLET 2 TAB PO ×2 (00:52→19:47)
[2023-09-26] MEDS: PIPERACILLIN/TAZO 3.375 GM in SODIUM CHLORIDE 0.9% 100 ML IV ×2 (04:00→15:34)
[2023-09-26] MEDS: HYDROMORPHONE 0.5 MG INJ IV ×6 (05:05→21:51)
[2023-09-26] MEDS: SODIUM CHLORIDE 0.9% 1,000 ML 100 ML IV ×2 (05:07→17:03)
[2023-09-26 06:33] LABS: Add Manual Diff / Slide Review NO; Basophils Absolute Auto 100 /uL (0-100); Basophils Percent Auto 0.7 % (0-2); Eosinophils Absolute Auto 100 /uL (0-450); Eosinophils Percent Auto 0.6 % (2-4); Hematocrit 37.5 % (41-53); Hemoglobin 12.8 g/dL (13.5-17.5); Lymphocytes Absolute Auto 900 /uL (1100-4500); Lymphocytes Percent Auto 5.1 % (25-40); Mean Corpuscular HGB Conc 34.2 % (30-36); Mean Corpuscular Hemoglobin 33.2 PG (26-34); Mean Corpuscular Volume 97.2 fL (80-100); Monocytes Absolute Auto 2100 /uL (0-900); Neutrophils Absolute Auto 14200 /uL (1500-7000); Neutrophils Percent Auto 81.6 % (50-75); Platelet Count 363 X10^3/uL (150-400); Red Blood Cell Count 3.85 X10^6/uL (4.5-5.9); Red Cell Distribution Width 12.8 % (11.6-14.8); White Blood Cell Count 17.4 X10^3/uL (4.5-11.0)
[2023-09-26 06:44] LABS: Alanine Aminotransferase 124 IU/L (<50); Albumin 3.3 g/dL (3.5-5.0); Albumin Globulin Ratio 1.1 (1.0-2.8); Alkaline Phosphatase 154 U/L (38-126); Aspartate Aminotransferase 56 IU/L (17-59); BUN Creatinine Ratio 15.8 (6-22); Bilirubin Total 1.3 mg/dL (0.2-1.3); Blood Urea Nitrogen 15 mg/dL (9-20); Calcium 8.1 mg/dL (8.4-10.2); Carbon Dioxide 24 mmol/L (22-32); Chloride 104 mmol/L (98-107); Estimated Glomerular Filt Rate > 60 mL/min (>60); Glucose 100 mg/dL (80-110); HEMOLYSIS < 15 (0-50); Potassium 4.2 mmol/L (3.4-5.1); Sodium 133 mmol/L (137-145); Total Protein 6.3 g/dL (6.3-8.2)
--- NOTE | 2023-09-26 08:26 | DI.CT.S_ITS ---
PROCEDURE: CT DRAIN APPENDICEAL ABSCESS COMPARISON: None. INDICATIONS: diverticular abscess DESCRIPTION OF PROCEDURE: Informed consent was obtained. The patient was prepped and draped in the standard sterile fashion. Multiple CT images were used to localize the abnormality. Using local anesthetic and Seldinger technique, a needle was placed into the collection. Following guidewire placement, fascial dilators were used to dilate the tract and a drainage catheter was placed in the usual manner. The drainage tube was secured to the skin and a surgical dressing was applied. In addition, with appropriate trained personnel and hemodynamic monitoring, contrast sedation using fentanyl and Versed was administered for 30 minutes. LOCATION: Left lower quadrant TUBE SPECIFICATIONS: 8 Kisw[place]ili straight MEDICATIONS: Fentanyl and Versed with continuous monitoring for 30 minutes. COMPLICATIONS: None. FINDINGS: Left lower quadrant diverticular abscess. CONCLUSION: Successful CT-guided percutaneous peritoneal drainage procedure. Dictated by: Jazmine Burt M.D. on 09/26/2023 at 23:37 Approved by: Jazmine Burt M.D. on 09/26/2023 at 23:38
--- NOTE | 2023-09-26 08:31 | DI.CT.S_ITS ---
PROCEDURE: CT ABDOMEN PELVIS W CON INDICATIONS: PERIOCOLONIC FLUID COLLECTION - FOR IR DRAIN ASSESSMENT TECHNIQUE: After the administration of intravenous contrast, axial sections acquired from the lung bases to the pubic symphysis. Coronal and sagittal reformats were performed. For radiation dose reduction, the following was used: automated exposure control, adjustment of mA and/or kV according to patient size. COMPARISON: [facility], CT, CT ABDOMEN PELVIS W CON, 09/13/2023, 7:49. [facility], CT, CT ABDOMEN PELVIS W CON, 09/25/2023, 14:43. FINDINGS: Image quality: Diagnostic. Lower Chest: No significant findings. ABDOMEN: Liver: No solid mass. Gallbladder: Gallbladder is mildly distended. Solitary calcified stone is present. Biliary ducts: No biliary dilation. Pancreas: No ductal dilation. Spleen: Size is within normal limits. Adrenal Glands: No adrenal nodules. Kidneys and Ureters: No hydronephrosis. No solid mass. 4 mm calculus noted in the left distal ureter near the UVJ. No associated obstruction. Finding is unchanged from the prior study of 09/13/2023.. Stomach and Bowel: No bowel obstruction. Diverticula seen in the sigmoid. There is abscess noted in the there is in the region of the previously noted sigmoid diverticular perforation. This shows air-fluid level. Abscess cavity measures 8.0 x 4.5 x 6.8 cm. Stranding is noted around the abscess. Peritoneum: No abnormal intraperitoneal fluid. No free air. Ventral Wall: No significant ventral hernia. Abdominal Nodes: No retroperitoneal or mesenteric adenopathy by size criteria. Vessels: Aorta and inferior vena cava are normal in size. PELVIS: Pelvic Organs: Mild prostatic enlargement. Bladder: No bladder wall thickening, accounting for underdistention. Pelvic Nodes: No enlarged lymph nodes. Miscellaneous: Small right-sided fat filled inguinal hernia.. Bones: No aggressive osseous abnormality. Degenerative changes of the IMPRESSION: Pelvic abscess secondary to diverticulitis. 4 mm nonobstructing calculus in the distal left ureter. Cholelithiasis. Dictated by: Carlos West M.D. on 09/26/2023 at 8:33 Approved by: Carlos West M.D. on 09/26/2023 at 9:40
--- NOTE | 2023-09-26 08:32 | PM.HP.1 ---
History of Present Illness History of Present Illness Date Patient Seen: 09/26/23 Time Patient Seen: 08:49 Chief complaint: diverticulitis, gall stone Narrative: Jorge is a 63-year-old man who presented to the emergency department last night with lower abdominal pain. A CT scan demonstrated a diverticular abscess. He was admitted here about a week and a half ago for diverticulitis and was discharged home after a few days of antibiotics. He has been taking oral cefdinir since his discharge in the hospital. [facility] Medical History Cholelithiasis Left arm pain Chronic neck pain Cervical radiculopathy Cervical spondylolysis Hypotestosteronism Hyperlipidemia Hearing loss Sleep apnea (~2009) Shoulder pain (~2004) Chronic back pain Carpal tunnel syndrome (~2004) Erectile dysfunction Preventative health care BPH (benign prostatic hyperplasia) Surgical History Anesthesia History of surgery on arm History of hernia repair History of back surgery History of hand surgery Social History household members: spouse Smoking Status: Former smoker alcohol intake: current Meds Home Medications and Allergies Home Medications Medication Instructions Recorded Confirmed Type tadalafil 5 mg tablet 5 mg PO DAILY PRN sexual activity 12/29/22 09/25/23 Rx #90 tabs ibuprofen 600 mg tablet 600 mg PO 3XD 09/13/23 09/25/23 History oxycodone-acetaminophen 5 mg-325 1 tab PO Q6H PRN pain #14 tabs 09/19/23 09/25/23 Rx mg tablet tamsulosin 0.4 mg capsule 0.4 mg PO BID #180 caps 09/19/23 09/25/23 Rx gabapentin 300 mg capsule 600 mg PO QPM 09/25/23 09/25/23 History Allergies Allergy/AdvReac Type Severity Reaction Status Date / Time No Known Drug Allergies Allergy Verified 09/25/23 10:24 Exam Vital Signs (past 8 hours): Oxygen Delivery Method Room Air,CPAP Oxygen Flow Rate 0 Const General: healthy appearing Resp Effort & Inspection: normal respiratory effort GI Other: Abdomen is soft, tender to palpation in the left lower quadrant No peritoneal signs Objective Labs 09/26/23 06:22 09/26/23 06:22 Labs: Laboratory Results - last 24 hr 09/25/23 09/25/23 09/25/23 10:32 14:50 15:41 WBC 18.9 H RBC 4.26 L Hgb 13.9 Hct 41.4 MCV 97.3 MCH 32.8 MCHC 33.7 RDW 12.8 Plt Count 421 H Neut % (Auto) 86.0 H Lymph % (Auto) 4.6 L Levy % (Auto) 8.8 Eos % (Auto) 0.4 L Baso % (Auto) 0.2 Neut # (Auto) 99492 H Lymph # (Auto) 900 L Levy # (Auto) 1700 H Eos # (Auto) 100 Baso # (Auto) 0 Sodium 132 L Potassium 4.4 Chloride 103 Carbon Dioxide 20 L BUN 20 Creatinine 0.97 Estimated GFR > 60 BUN/Creatinine Ratio 20.6 Glucose 146 H Lactate 0.6 L Calcium 8.9 Total Bilirubin 1.5 H AST 119 H ALT 191 H Alkaline Phosphatase 216 H Total Protein 7.4 Albumin 3.9 Globulin 3.5 Albumin/Globulin Ratio 1.1 Lipase 68 Urine RBC 0-1/hpf Urine WBC 0-1/hpf Ur Squamous Epith Cells 0-1 /hpf Urine Bacteria None seen Vol Urine Centrifuged 10ml (spun) 09/26/23 06:22 WBC 17.4 H RBC 3.85 L Hgb 12.8 L Hct 37.5 L MCV 97.2 MCH 33.2 MCHC 34.2 RDW 12.8 Plt Count 363 Neut % (Auto) 81.6 H Lymph % (Auto) 5.1 L Levy % (Auto) 12.0 Eos % (Auto) 0.6 L Baso % (Auto) 0.7 Neut # (Auto) 33039 H Lymph # (Auto) 900 L Levy # (Auto) 2100 H Eos # (Auto) 100 Baso # (Auto) 100 Sodium 133 L Potassium 4.2 Chloride 104 Carbon Dioxide 24 BUN 15 Creatinine 0.95 Estimated GFR > 60 BUN/Creatinine Ratio 15.8 Glucose 100 Lactate Calcium 8.1 L Total Bilirubin 1.3 AST 56 ALT 124 H Alkaline Phosphatase 154 H Total Protein 6.3 Albumin 3.3 L Globulin 3.0 Albumin/Globulin Ratio 1.1 Lipase Urine RBC Urine WBC Ur Squamous Epith Cells Urine Bacteria Vol Urine Centrifuged Assessment & Plan Assessment and plan (1) Colonic diverticular abscess: Status: Acute Plan I discussed feasibility of percutaneous drain placement with the interventional radiologist on-call today at [facility]. He believes he will be able to place a drain into the abscess. We will arrange a transport for the procedure at [facility] and he can return here for the remainder of his hospital care. I discussed the plan of percutaneous drainage to improve his intra-abdominal sepsis. Once things have settled down he will be optimized for a sigmoid colon resection with a primary anastomosis. I informed him that if we are unable to percutaneously drain the abscess he would need a more urgent sigmoid colectomy which could result in a temporary colostomy. He understands with the plan and agrees to proceed. Time-Based Coding :: [TOTAL MINUTES] spent with patient and on the chart (including review of chart, obtaining history, exam, reviewing outside data, placing orders, documenting exam and treatment plan, and counseling patient) on [DATE].
[2023-09-26] MEDS: ONDANSETRON 4 MG/2 ML INJ IV ×2 (09:11→15:33)
[2023-09-26 10:03] LABS: INR 1.8 (0.9-1.3); Prothrombin Time 20.3 SECONDS (9.4-12.5)
--- NOTE | 2023-09-26 14:17 | CM.DANOTE ---
Initial DCP Assessment Visit Reviewed EMR and team rounds for status updates. Went to meet with pt at bedside, however he had already been transferred to [facility] for a interventional radiology procedure. Pt resides independently in his own home with his on [address]. Once he's completed his hospital course, his will transport him back home at time of discharge. Payor: [facility] PCP: Marlo Simmons Attending: Dr. Rand Pt is a 63 year-old M who was recently admitted here from 09/12-09/13 for a [id number] diverticulitis. He initially improved with a course of IV antibiotics, and was discharged back home on oral antibiotics. He states that his pain began to get progressively worse since discharge. CT abd/pelvis showed an abdominal abcess. The plan was made by Dr. Rand for pt to transfer/treat at [facility] for an interventional radiology procedure to try and place a percutaneous drain into the abcess. If that is not successful, then pt will need to be brought back to surgery for a partical colectomy, possibly resulting in a temporary colostomy. Pt was agreeable, and he was trasferred out this afternoon. Plan is for him to return to for the remainder of his hospitalization. DCP will continue to follow for any final d/c needs or recommendations. Discharge Planning/Care Management CM Discharge Assessment Start: 09/26/23 14:16 Freq: Status: Active Protocol: Document 09/26/23 14:16 DPL (Rec: 09/26/23 14:17 DPL [id number]) Discharge Planning Assessment Assigned Audio Visual Production Specialist RONAK Macias Advance Directives? No History Provided By Medical Record Prior Living Arrangements House Household Members spouse Type of transporation used prior to Drives own vehicle admit Independent with ADL's Yes Is patient alert and oriented? Yes Comment Pending the results of interventional radiology. Barriers to Discharge No Discharge Plan Home Transportation Arrangement Spouse Referrals Initiated None needed Review Status In Process Please Provide Date Initial DC 09/26/23 Assessment Was Performed
[2023-09-26] MEDS: fentaNYL 100 MCG/2 ML INJ IV (14:20)
[2023-09-26] MEDS: MIDAZOLAM 2 MG/2 ML VIAL IV (14:20)
[2023-09-26] MEDS: SODIUM CHLORIDE 0.9% FLUSH 10 ML IV (15:34)
[2023-09-26] MEDS: TAMSULOSIN 0.4 MG CAPSULE PO (20:02)
[2023-09-27] MEDS: PIPERACILLIN/TAZO 3.375 GM in SODIUM CHLORIDE 0.9% 100 ML IV ×4 (00:01→23:35)
--- NOTE | 2023-09-27 00:19 | PC.NURSE ---
Patient alert and oriented but in 11/12 pain related to LLQ drain placement on previous shift. Medicated with IV Dilaudid as well as po Vicodin at start of shift with pain reduction to 6/10. Then medicated 2 hours later with IV Dilaudid for / pain with reduction again to 6/10 and is currently asleep. Breath sounds diminished at bases but CTA with RA sat of 96%; is wearing home CPAP. HRR w/ BP elevated at 142/78 possibly related to pain. Denied nausea. BT present and abdomen is soft but tender especially in LLQ. Has drain in LLQ with very minimal serosanguinous appearing drainage noted. Is voiding using urinal at bedside and urine is much neurocritical care physician tonight. Stated he was having difficulty moving in bed related to pain so pulled up in bed using 2 assists and bed tilted to left side and then later tilted back to supine; will reposition upon request. Agreeable to having bilateral calf SCD's on tonight related to decreased mobility due to pain. Fall risk score is moderate but calls appropriately when he needs assistance so alarm not activated at this time.
[2023-09-27] MEDS: HYDROCODONE/ACET 5/325 TABLET 2 TAB PO ×6 (00:28→22:21)
[2023-09-27] MEDS: HYDROMORPHONE 0.5 MG INJ IV ×6 (01:00→14:59)
[2023-09-27] MEDS: SODIUM CHLORIDE 0.9% 1,000 ML 100 ML IV ×3 (03:09→22:26)
[2023-09-27 03:50] VITALS: BP 113/67; PULSE 65; RESP 14; TEMP 36.2; O2SAT 95
[2023-09-27 08:00] VITALS: BP 115/66; PULSE 74; RESP 16; TEMP 36.4; O2SAT 95
[2023-09-27] MEDS: IBUPROFEN 600 MG TABLET PO ×2 (09:28→21:31)
[2023-09-27] MEDS: TAMSULOSIN 0.4 MG CAPSULE PO ×2 (09:28→21:31)
[2023-09-27] MEDS: SODIUM CHLORIDE 0.9% FLUSH 10 ML IV (09:30)
[2023-09-27 12:00] VITALS: BP 125/78; PULSE 71; RESP 16; TEMP 36.7; O2SAT 97
--- NOTE | 2023-09-27 12:38 | CM.DPC ---
DCP Cont. Reviewed EMR and team rounds for status updates. Pt had the abdominal drain placed yesterday in the OR. Draining very little with new drain placement, TBD if he will need a hemicolectomy in the next day. Lives ind. at home w/. Pending final d/c needs/recommendations.
[2023-09-27 16:00] VITALS: BP 124/81; PULSE 61; RESP 18; TEMP 35.9; O2SAT 97
--- NOTE | 2023-09-27 18:05 | PC.NURSE ---
Pt reports pain at a more tolerable level today. Provided drain care flushing 5mL NS towards body per MD. Pt ambulated in room with SBA.
[2023-09-27 19:00] VITALS: BP 120/78; PULSE 64; RESP 18; TEMP 36.9; O2SAT 97
[2023-09-27] MEDS: ONDANSETRON 4 MG/2 ML INJ IV (23:35)
[2023-09-28 04:47] VITALS: BP 106/70; PULSE 54; RESP 18; TEMP 36.7; O2SAT 98
[2023-09-28 06:06] LABS: Add Manual Diff / Slide Review NO; Basophils Absolute Auto 100 /uL (0-100); Basophils Percent Auto 0.8 % (0-2); Eosinophils Absolute Auto 200 /uL (0-450); Eosinophils Percent Auto 3.1 % (2-4); Hematocrit 35.8 % (41-53); Hemoglobin 12.1 g/dL (13.5-17.5); Lymphocytes Absolute Auto 1000 /uL (1100-4500); Lymphocytes Percent Auto 15.1 % (25-40); Mean Corpuscular HGB Conc 33.9 % (30-36); Mean Corpuscular Hemoglobin 33.2 PG (26-34); Monocytes Absolute Auto 900 /uL (0-900); Monocytes Percent Auto 14.4 % (3-14); Neutrophils Absolute Auto 4400 /uL (1500-7000); Neutrophils Percent Auto 66.6 % (50-75); Platelet Count 369 X10^3/uL (150-400); Red Blood Cell Count 3.65 X10^6/uL (4.5-5.9); Red Cell Distribution Width 12.9 % (11.6-14.8); White Blood Cell Count 6.6 X10^3/uL (4.5-11.0)
[2023-09-28] MEDS: HYDROCODONE/ACET 5/325 TABLET 1 TAB PO (07:52)
[2023-09-28] MEDS: PIPERACILLIN/TAZO 3.375 GM in SODIUM CHLORIDE 0.9% 100 ML IV (07:55)
[2023-09-28 08:00] VITALS: BP 126/74; PULSE 57; RESP 16; TEMP 36.3; O2SAT 99
--- NOTE | 2023-09-28 08:12 | PC.NURSE ---
recruiter specialist: LLQ drain output 125cc alejandre fluid overnight. Flushed drain w/ 5cc NS as ordered. States that abdominal pain has improved, medicated as ordered with good effect. Experienced nausea w/o vomiting after pain medication, Zofran & snack given with relief. IVF & IV abx infused as ordered. Oriented to call-light, plan of care ongoing.
[2023-09-28] MEDS: TAMSULOSIN 0.4 MG CAPSULE PO (09:57)
[2023-09-28] MEDS: SODIUM CHLORIDE 0.9% FLUSH 10 ML IV (09:57)
[2023-09-28] MEDS: IBUPROFEN 600 MG TABLET PO (09:59)
[2023-09-28] MEDS: HYDROCODONE/ACET 5/325 TABLET 2 TAB PO ×2 (12:37→16:49)
--- NOTE | 2023-09-28 13:17 | PM.PN.1 ---
Subjective Subjective Date Patient Seen: 09/28/23 Time Patient Seen: 13:18 Interval history: Feels better. Drain procedure was painful. Still hasn't passed the kidney stone Exam Vital Signs (past 8 hours): - 09/28/23 08:00 Temperature 97.4 F L Pulse Rate 57 L Respiratory Rate 16 Blood Pressure 126/74 Pulse Oximetry 99 Oxygen Delivery Method Room Air,CPAP Oxygen Flow Rate 0 Narrative Exam Narrative: abdomen is tender to palpation LLQ, Drain has pus. WBC normal Objective Labs 09/28/23 05:44 09/26/23 06:22 Labs: Laboratory Results - last 24 hr 09/28/23 05:44 WBC 6.6 D RBC 3.65 L Hgb 12.1 L Hct 35.8 L MCV 98.0 MCH 33.2 MCHC 33.9 RDW 12.9 Plt Count 369 Neut % (Auto) 66.6 Lymph % (Auto) 15.1 L Sanborn % (Auto) 14.4 H Eos % (Auto) 3.1 Baso % (Auto) 0.8 Neut # (Auto) 4400 Lymph # (Auto) 1000 L Sanborn # (Auto) 900 Eos # (Auto) 200 Baso # (Auto) 100 PFSH Medical History Cholelithiasis Left arm pain Chronic neck pain Cervical radiculopathy Cervical spondylolysis Hypotestosteronism Hyperlipidemia Hearing loss Sleep apnea (~2009) Shoulder pain (~2004) Chronic back pain Carpal tunnel syndrome (~2004) Erectile dysfunction Preventative health care BPH (benign prostatic hyperplasia) Surgical History Anesthesia History of surgery on arm History of hernia repair History of back surgery History of hand surgery Social History household members: spouse Smoking Status: Former smoker alcohol intake: current Assessment & Plan Assessment & Plan narrative: Success with drainage of diverticular abscess. Drain now being flushed. WBC normal. Plan: Continue IV antibiotics. Patient can go home with drain when he feels stable. Will switch to po antibiotics at that time. Time-Based Coding :: 15 min spent with patient and on the chart (including review of chart, obtaining history, exam, reviewing outside data, placing orders, documenting exam and treatment plan, and counseling patient) on 09/28/23.
--- NOTE | 2023-09-28 14:28 | CM.DPC ---
DCP Continued Reviewed EMR and team rounds for pt?s medical status. Per Provider, pt medically cleared to discharge when feeling stable with PO antibiotics. No new discharge needs identified at this time. Plan: Discharge order in, pt to discharge home with to transport. CM Team will continue to follow for coordination of discharge plans. MARCIE Dupont
[2023-09-28] MEDS: AMOXICILLIN/CLAV 875/125 MG 1 TAB PO (15:34)
--- NOTE | 2023-09-28 16:53 | PC.NURSE ---
Dayshift: Provided discharge education to pt. Taught pt percutaneous abd drain flushing per MD instructions via demonstration and then had patient teach back. Pt demonstrated flushing with 100% adherence to instructions. PIV d/c'ed. All belongings with patient. Patient escorted out to exit to be picked up by spouse in POV via wheelchair by GARRICK Dave
== END 2023-09-28 16:55 | disposition home or self-care (01) | DRG 392 ==
LOC: ED 14:19 → AC 17:37
PROVIDERS: Surgery; Admitting Provider Surgery; Emergency Provider Emergency Medicine; PCP Family Medicine; Referring Provider Emergency Medicine; Visit Provider Surgery
DX: K57.20 Diverticulitis of large intestine with perforation and abscess without bleeding (principal); G47.30 Sleep apnea, unspecified; N40.0 Benign prostatic hyperplasia without lower urinary tract symptoms; Z87.891 Personal history of nicotine dependence
CPT/HCPCS: 36415; 49406; 74177; 80053; 81003; 81015; 83605; 83690; 85014; 85025; 85610; 93005; 96365; 96375; 99231; 99232; 99284; 99291; J1170; J2250; J2270; J2405; J2543; J3010; Q9967

== ENCOUNTER 2023-09-29 20:12 | Emergency (ER) | payer OTHER, SELFPAY ==
[2023-09-25 18:01] VITALS: BMI 28.1
[2023-09-29 20:14] VITALS: BP 144/85; PULSE 90; RESP 18; TEMP 36.1; O2SAT 97; BMI 28.1
--- NOTE | 2023-09-29 20:37 | ED_ITS ---
HPI - Recheck/Abnormal Lab/Rx General Chief Complaint: Recheck/Abnormal Lab/Rx Stated Complaint: drain is coming out of abd Time Seen by Provider: 09/29/23 20:23 Source: patient Mode of arrival: Ambulatory History of Present Illness HPI narrative: Patient is a 63-year-old male. Was seen here in the emergency department earlier this week and was diagnosed with a diverticular abscess. Had a percutaneous drain placed. Was discharged home yesterday. He states that there has been decrease in the amount of drainage from the drain. He thought that meant that the abscess was improving. He stated that he tried to flush the drain this evening and all of the flush ended up just running down his abdomen. He reports no increase in pain. No fevers. No change in bowel habits. No vomiting. He was prescribed antibiotics on discharge from the hospital yesterday. He pick them up today and took the 1st dose today. Related Data Home Medications Medication Instructions Recorded Confirmed ibuprofen 600 mg tablet 600 mg PO 3XD 09/13/23 09/25/23 gabapentin 300 mg capsule 600 mg PO QPM 09/25/23 09/25/23 lorazepam 0.5 mg tablet 0.5 mg PO ONCE PM PRN insomnia 09/26/23 09/26/23 trazodone 50 mg tablet 50 mg PO ONCE PM 09/26/23 09/26/23 Previous Rx's Medication Instructions Recorded tadalafil 5 mg tablet 5 mg PO DAILY PRN sexual activity 12/29/22 #90 tabs oxycodone-acetaminophen 5 mg-325 1 tab PO Q6H PRN pain #14 tabs 09/19/23 mg tablet tamsulosin 0.4 mg capsule 0.4 mg PO BID #180 caps 09/19/23 amoxicillin 875 mg-potassium 1 tab PO BID #20 tabs 09/28/23 clavulanate 125 mg tablet hydrocodone 5 mg-acetaminophen 325 2 tab PO 1-2XD PRN Pain, Severe 09/28/23 mg tablet (7-10) #20 tabs ibuprofen 600 mg tablet 600 mg PO Q6H PRN Fever/Mild Pain 09/28/23 (1-3) #60 tabs sodium chloride 0.9 % (flush) 10 ml IV PRN PRN Flush #60 mL 09/28/23 (Normal Saline Flush 0.9 % injection syringe) Allergies Allergy/AdvReac Type Severity Reaction Status Date / Time No Known Drug Allergies Allergy Verified 09/29/23 20:14 Review of Systems Constitutional Constitutional: Reports system reviewed and no additional complaints, except as documented Gastrointestinal Gastrointestinal: Reports system reviewed and no additional complaints, except as documented Genitourinary Genitourinary: Reports system reviewed and no additional complaints, except as documented Integumentary/Breasts Skin/Breast: Reports system reviewed and no additional complaints, except as documented Patient History Medical History Cholelithiasis Left arm pain Chronic neck pain Cervical radiculopathy Cervical spondylolysis Hypotestosteronism Hyperlipidemia Hearing loss Sleep apnea (~2009) Shoulder pain (~2004) Chronic back pain Carpal tunnel syndrome (~2004) Erectile dysfunction Preventative health care BPH (benign prostatic hyperplasia) Surgical History Anesthesia History of surgery on arm History of hernia repair History of back surgery History of hand surgery Social History household members: spouse Smoking Status: Former smoker alcohol intake: current Smoking Status: Former smoker alcohol intake frequency: holidays/special occasions only Substance Use Type: marijuana Exam Initial Vital Signs Initial Vital Signs: Vital Signs Temperature 97.0 F L 09/29/23 20:14 Pulse Rate 90 09/29/23 20:14 Respiratory Rate 18 09/29/23 20:14 Blood Pressure 144/85 H 09/29/23 20:14 Pulse Oximetry 97 09/29/23 20:14 Oxygen Delivery Method Room Air 09/29/23 20:14 HENDC Head: normal to inspection and normocephalic Resp Effort & Inspection: normal respiratory effort Auscultation: clear to auscultation bilaterally Cardio Rate: regular rate Rhythm: regular rhythm GI Inspection: normal to inspection and non-distended Palpation: soft, No firm and No guarding Other: Percutaneous drain located left lower quadrant Course Orders Ordered: ED Orders 09/29/23 20:39 CT abdomen pelvis w con Stat 09/29/23 20:45 Basic Metabolic Panel Stat Complete Blood Count AUTO DIFF Stat Vital Signs Vital signs: Vital Signs - 8 hr 09/29/23 20:14 Temperature 97.0 F L Pulse Rate 90 Respiratory Rate 18 Blood Pressure 144/85 H Pulse Oximetry 97 Oxygen Delivery Method Room Air MDM - Recheck/Abnormal Lab/Rx Lab Data Attestation: I reviewed the patient's lab results. 09/29/23 20:45 09/29/23 20:45 Labs: Lab Results 09/29/23 Range/Units 20:45 WBC 8.4 (4.5-11.0) X10^3/uL RBC 4.24 L (4.5-5.9) X10^6/uL Hgb 13.8 (13.5-17.5) g/dL Hct 41.3 (41-53) % MCV 97.5 (80-100) fL MCH 32.6 (26-34) PG MCHC 33.5 (30-36) % RDW 13.1 (11.6-14.8) % Plt Count 484 H (150-400) X10^3/uL Neut % (Auto) 71.3 (50-75) % Lymph % (Auto) 13.6 L (25-40) % Mora % (Auto) 10.6 (3-14) % Eos % (Auto) 3.5 (2-4) % Baso % (Auto) 1.0 (0-2) % Neut # (Auto) 6000 (5725-0729) /uL Lymph # (Auto) 1200 (1407-7349) /uL Mora # (Auto) 900 (0-900) /uL Eos # (Auto) 300 (0-450) /uL Baso # (Auto) 100 (0-100) /uL Sodium 137 (137-145) mmol/L Potassium 3.9 (3.4-5.1) mmol/L Chloride 106 (98-107) mmol/L Carbon Dioxide 26 (22-32) mmol/L BUN 14 (9-20) mg/dL Creatinine 0.93 (0.66-1.25) mg/dL Estimated GFR > 60 (>60) mL/min BUN/Creatinine Ratio 15.1 (6-22) Glucose 145 H (80-110) mg/dL Calcium 8.9 (8.4-10.2) mg/dL Imaging Data CT scan - abdomen/pelvis: Radiologist's Impression: PROCEDURE: CT ABDOMEN PELVIS W CON INDICATIONS: hx of diverticular abscess with drain falling out TECHNIQUE: After the administration of intravenous contrast, axial sections acquired from the lung bases to the pubic symphysis. Coronal and sagittal reformats were performed. For radiation dose reduction, the following was used: automated exposure control, adjustment of mA and/or kV according to patient size. COMPARISON: [facility], CT, CT ABDOMEN PELVIS W CON, 09/26/2023, 7:52. [facility], CT, CT ABDOMEN PELVIS W CON, 09/13/2023, 7:49. [facility], CT, CT ABDOMEN PELVIS W CON, 09/25/2023, 14:43. [facility], CT, CT DRAIN APPENDICEAL ABSCESS, 09/26/2023, 13:56. FINDINGS: Image quality: Diagnostic. Lower Chest: No significant findings. ABDOMEN: Liver: No solid mass. Gallbladder: No radiopaque gallstones or wall thickening. Biliary ducts: No biliary dilation. Pancreas: No ductal dilation. Spleen: Size is within normal limits. Adrenal Glands: No adrenal nodules. Kidneys and Ureters: There is mild left-sided hydroureter and hydronephrosis. There is an obstructing stone seen at the left ureterovesicular junction, as on series 2, image 84, measuring 5 mm. No solid mass. No complex renal cystic lesion which requires follow up. Bowel and Peritoneum: Previously administered oral contrast can be seen, primarily within the colon. Focal sigmoid wall thickening can be seen, with areas of extraluminal fluid and gas. The largest is seen immediately adjacent to the sigmoid colon, which is clearly decreased compared to the prior examination. The previously drained abscess is also clearly smaller than on the prior examination, measuring 2.7 x 1.3 cm in greatest axial dimension. Generalized inflammatory change can be seen. No dilated loops of small bowel are seen. Ventral Wall: No significant ventral hernia. Abdominal Nodes: No retroperitoneal or mesenteric adenopathy by size criteria. Vessels: Aorta and inferior vena cava are normal in size. PELVIS: Pelvic Organs: Unremarkable. Bladder: No bladder wall thickening, accounting for underdistention. Pelvic Nodes: No enlarged lymph nodes. Miscellaneous: There is a mild fat containing right inguinal hernia. Bones: No aggressive osseous abnormality. Focal L5-S1 degenerative change is seen. Milder degenerative changes are seen elsewhere. IMPRESSION: Left lower quadrant diverticular abscesses can be seen, which are clearly improved compared to the 09/26/2023 examination. 5 mm obstructing stone seen at the left ureterovesicular junction, with associated left-sided hydroureter and hydronephrosis. Additional findings: Focal L5-S1 degenerative change Fat containing right inguinal hernia MDM Narrative Medical decision making narrative: I removed the bandages from the percutaneous drain in it was completely removed from the skin. The area around the insertion site appears well. Repeat CT scan shows improvement in the size of the abscess compared to prior CT. Labs are unremarkable. I did discuss the case with Dr. Carvajal on-call for General surgery who stated that given the size of the abscess we will treat it conservatively with oral antibiotics. I did discuss this with the patient. We also discussed the other incidental finding of the distal ureteral stone. He states he knows about the stone and has a plan for follow-up with Urology. Will discharge patient home to continue with the antibiotics that was prescribed during his admission to the hospital. He was given return precautions and follow-up instructions. He expressed understanding and agreement. Discharge Plan Departure Patient Disposition: Home Clinical Impression: Intestinal diverticular abscess Activity Restrictions/Additional Instructions: Based on the CT scan today we do not need to replace the drain. You do need to continue to take the antibiotics as directed and keep all of your scheduled medical appointments with the general surgeons. Return to the emergency department for new or worsening symptoms. Prescriptions: No Action tadalafil 5 mg tablet 5 mg PO DAILY PRN (Reason: sexual activity) Qty: 90 3RF Rx Instructions: administer approximately 30min before sexual activity; do not use more than 1 dose per 24hrs tamsulosin 0.4 mg capsule 0.4 mg PO BID Qty: 180 3RF Rx Instructions: take at bedtime oxycodone-acetaminophen 5-325 mg tablet 1 tab PO Q6H PRN (Reason: pain) Qty: 14 0RF ibuprofen 600 mg tablet 600 mg PO 3XD gabapentin 300 mg capsule 600 mg PO QPM trazodone 50 mg tablet 50 mg PO ONCE PM lorazepam 0.5 mg tablet 0.5 mg PO ONCE PM PRN (Reason: insomnia) hydrocodone-acetaminophen 5-325 mg Tablet 2 tab PO 1-2XD PRN (Reason: Pain, Severe (7-10)) Qty: 20 0RF ibuprofen 600 mg Tablet 600 mg PO Q6H PRN (Reason: Fever/Mild Pain (1-3)) Qty: 60 0RF amoxicillin-pot clavulanate 875-125 mg Tablet 1 tab PO BID Qty: 20 0RF sodium chloride 0.9 % (flush) [Normal Saline Flush] Syringe 10 ml IV PRN PRN (Reason: Flush) Qty: 60 0RF Referrals: Marlo Simmons DO [Primary Care Provider] - Stand Alone Forms: Patient Portal/API
[2023-09-29 20:56] LABS: Add Manual Diff / Slide Review NO; Basophils Absolute Auto 100 /uL (0-100); Eosinophils Absolute Auto 300 /uL (0-450); Eosinophils Percent Auto 3.5 % (2-4); Hematocrit 41.3 % (41-53); Hemoglobin 13.8 g/dL (13.5-17.5); Lymphocytes Absolute Auto 1200 /uL (1100-4500); Lymphocytes Percent Auto 13.6 % (25-40); Mean Corpuscular HGB Conc 33.5 % (30-36); Mean Corpuscular Hemoglobin 32.6 PG (26-34); Mean Corpuscular Volume 97.5 fL (80-100); Monocytes Absolute Auto 900 /uL (0-900); Monocytes Percent Auto 10.6 % (3-14); Neutrophils Absolute Auto 6000 /uL (1500-7000); Neutrophils Percent Auto 71.3 % (50-75); Platelet Count 484 X10^3/uL (150-400); Red Blood Cell Count 4.24 X10^6/uL (4.5-5.9); Red Cell Distribution Width 13.1 % (11.6-14.8); White Blood Cell Count 8.4 X10^3/uL (4.5-11.0)
[2023-09-29 21:09] LABS: BUN Creatinine Ratio 15.1 (6-22); Blood Urea Nitrogen 14 mg/dL (9-20); Calcium 8.9 mg/dL (8.4-10.2); Carbon Dioxide 26 mmol/L (22-32); Chloride 106 mmol/L (98-107); Estimated Glomerular Filt Rate > 60 mL/min (>60); Glucose 145 mg/dL (80-110); HEMOLYSIS < 15 (0-50); Potassium 3.9 mmol/L (3.4-5.1); Sodium 137 mmol/L (137-145)
== END 2023-09-29 23:02 | disposition home or self-care (01) ==
PROVIDERS: Emergency Provider Emergency Medicine; PCP Family Medicine
DX: K63.0 Abscess of intestine (principal); K40.90 Unilateral inguinal hernia, without obstruction or gangrene, not specified as recurrent
CPT/HCPCS: 36415; 74177; 80048; 85025; 99283; 99284

== ENCOUNTER → 2023-10-18 07:39 | Outpatient (CLI) | payer OTHER, SELFPAY ==
[2023-09-25 18:01] VITALS: BMI 28.1
--- NOTE | 2023-10-18 07:40 | DI.CT.S_ITS ---
PROCEDURE: CT ABDOMEN PELVIS W CON INDICATIONS: History of diverticulitis TECHNIQUE: After the administration of intravenous contrast, axial sections acquired from the lung bases to the pubic symphysis. Coronal and sagittal reformats were performed. For radiation dose reduction, the following was used: automated exposure control, adjustment of mA and/or kV according to patient size. COMPARISON: [facility], CT, CT ABDOMEN PELVIS W CON, 09/29/2023, 20:41. FINDINGS: Image quality: Diagnostic. Lower Chest: No significant findings. ABDOMEN: Liver: No solid mass. Gallbladder: Similar small gallstone within the gallbladder. Biliary ducts: No biliary dilation. Pancreas: No ductal dilation. Spleen: Size is within normal limits. Adrenal Glands: No adrenal nodules. Kidneys and Ureters: No hydronephrosis. No solid mass. No complex renal cystic lesion which requires follow up. Previously described stone at the left UV junction is no longer present. Stomach and Bowel: There is an abscess in the left lower quadrant that currently measures 1.8 x 1.3 cm, compared to 2.7 x 1.3 cm. No new abscess. Sigmoid diverticulosis. Peritoneum: There is diffuse fat stranding throughout the left lower quadrant. The degree of fat stranding has slightly decreased. No free air. Ventral Wall: No significant ventral hernia. Abdominal Nodes: No retroperitoneal or mesenteric adenopathy by size criteria. Vessels: Aorta and inferior vena cava are normal in size. PELVIS: Pelvic Organs: Unremarkable. Bladder: The bladder is decompressed. Pelvic Nodes: No enlarged lymph nodes. Miscellaneous: The small right inguinal hernia. Bones: No aggressive osseous abnormality. IMPRESSION: 1. There has been interval decrease in size of a small abscess in the left lower quadrant. It currently measures 1.8 x 1.3 cm, compared to 2.7 x 1.3 cm. No new abscess. 2. Similar small gallstone within the gallbladder. 3. Previously described small calculus at the UV junction has resolved. Dictated by: Max Duran M.D. on 10/19/2023 at 12:12 Approved by: Max Duran M.D. on 10/19/2023 at 13:18
== END ==
LOC: CT 07:39
PROVIDERS: PCP Family Medicine; Referring Provider Surgery; Visit Provider Surgery
DX: K63.0 Abscess of intestine (principal); K80.20 Calculus of gallbladder without cholecystitis without obstruction; K40.90 Unilateral inguinal hernia, without obstruction or gangrene, not specified as recurrent
CPT/HCPCS: 74177; Q9967

== ENCOUNTER → 2024-02-06 17:21 | Outpatient (CLI) | payer OTHER, SELFPAY ==
[2023-09-25 18:01] VITALS: BMI 28.1
== END ==
PROVIDERS: PCP Family Medicine; Referring Provider Internal Medicine; Visit Provider Internal Medicine
DX: Z23 Encounter for immunization (principal)
CPT/HCPCS: 90471; 90656

== ENCOUNTER → 2024-02-11 13:30 | Outpatient (CLI) | payer OTHER, SELFPAY ==
[2023-09-25 18:01] VITALS: BMI 28.1
--- NOTE | 2024-02-11 13:32 | DI.RAD.S_ITS ---
PROCEDURE: XR SHOULDER RT MIN 2V INDICATIONS: Fall, right shoulder pain TECHNIQUE: 3 views of the shoulder were acquired. COMPARISON: None. FINDINGS: Bones: No acute fractures or dislocations. No suspicious bony lesions. Visualized ribs appear intact. Mild acromioclavicular joint osteoarthrosis. Soft tissues: No suspicious soft tissue calcifications. IMPRESSION: No acute osseous abnormality. If symptoms persist or if there is continued clinical concern, cross-sectional imaging such as MRI or CT may be helpful for further evaluation. Approved by: Carl Alcala M.D. on 02/11/2024 at 16:50
== END ==
PROVIDERS: PCP Family Medicine; Referring Provider Nurse Practitioner Family; Visit Provider Nurse Practitioner Family
DX: S46.911A Strain of unspecified muscle, fascia and tendon at shoulder and upper arm level, right arm, initial encounter (principal); M19.011 Primary osteoarthritis, right shoulder; W19.XXXA Unspecified fall, initial encounter
CPT/HCPCS: 73030

== ENCOUNTER → 2024-10-09 09:43 | Outpatient (CLI) | payer OTHER, SELFPAY ==
[2024-09-23 09:11] VITALS: BMI 28.1
[2024-10-09 09:59] LABS: Add Manual Diff / Slide Review NO; Hematocrit 41.7 % (41-53); Hemoglobin 14.3 g/dL (13.5-17.5); Lymphocytes Absolute Auto 1000 /uL (1100-4500); Mean Corpuscular HGB Conc 34.2 % (30-36); Mean Corpuscular Hemoglobin 33.5 PG (26-34); Mean Corpuscular Volume 97.8 fL (80-100); Platelet Count 180 X10^3/uL (150-400)
[2024-10-09 10:06] LABS: Hemoglobin A1C% w Est Avg Glu 5.6 % (4.0-6.0)
[2024-10-09 10:42] LABS: Alanine Aminotransferase 15 IU/L (<50); Albumin 4.4 g/dL (3.5-5.0); Albumin Globulin Ratio 1.5 (1.0-2.8); Alkaline Phosphatase 80 U/L (38-126); Blood Urea Nitrogen 16 mg/dL (9-20); Calcium 9.6 mg/dL (8.4-10.2); Carbon Dioxide 26 mmol/L (22-32); Chloride 104 mmol/L (98-107); Estimated Glomerular Filt Rate > 60 mL/min (>60); Globulin 2.9 g/dL (1.7-4.1); Glucose 91 mg/dL (70-99); Potassium 4.1 mmol/L (3.4-5.1); Sodium 140 mmol/L (137-145); Total Protein 7.3 g/dL (6.3-8.2)
[2024-10-09 11:08] LABS: TSH w/ Reflex to FT4 0.46 uIU/mL (0.47-4.68)
[2024-10-09 11:14] LABS: HEMOLYSIS < 15 (0-50)
[2024-10-09 13:40] LABS: Free T4, Direct Thyroxine 1.34 ng/dL (0.78-2.19)
== END ==
PROVIDERS: PCP Family Medicine; Referring Provider Family Medicine; Visit Provider Family Medicine
DX: Z00.00 Encounter for general adult medical examination without abnormal findings (principal); E78.00 Pure hypercholesterolemia, unspecified; N40.1 Benign prostatic hyperplasia with lower urinary tract symptoms; N13.8 Other obstructive and reflux uropathy; Z12.5 Encounter for screening for malignant neoplasm of prostate
CPT/HCPCS: 36415; 80053; 83036; 84439; 84443; 85025; G0103